=== PATIENT | female | born 1965 | race Caucasian/White ===

== ENCOUNTER 2019-09-22 09:52 | Outpatient (CLI) | payer OTHER, SELFPAY | END 2019-09-22 09:53 | disposition home or self-care (01) | PROVIDERS: PCP Family Medicine; Visit Provider Family Medicine | DX: J44.9 Chronic obstructive pulmonary disease, unspecified (principal) | CPT/HCPCS: 94060; 94726; 94729 ==

== ENCOUNTER 2019-09-26 12:04 | Outpatient (CLI) | payer OTHER, SELFPAY ==
--- NOTE | ~2019-09-26 | CT_ITS ---
EXAMINATION: CT lung screening EXAM DATE: 09/26/2019 12:37 INDICATION: Personal history of nicotine dependence. TECHNIQUE: Spiral low dose CT of the chest without contrast. Axial, coronal and sagittal images were reviewed. The dose-length product (DLP) for this examination was 92.01 mGy-cm. The exposure was ta ilored according to patient size (auto mA exposure control), and iterative reconstruction (ASIR) was used as additional dose reduction technique. Comparison is made to prior examination from 08/11/2018. FINDINGS: Calcified left lower lobe granuloma. Development of several right lower lobe superior segm ental 2 mm opacities likely postinfectious. There is moderate emphysema and mild bronchiectasis. Left basilar linear scarring. Tracheobronchial tree is patent. There is no mediastinal, hilar or axilla ry lymphadenopathy. There are no pleural or pericardial effusions. There is no pneumothorax. He art normal in size. No evidence of coronary arterial calcification. There is no significant interv al change. There are cholecystectomy clips. There is mild thoracic spondylosis without osteoblast ic or osteolytic lesions identified. IMPRESSION: Lung-RADS category 2, benign appearance or behavior (<1% chance of malignancy); recommend continued LDCT screening in 1 year. Reviewed, dictated and finalized at location A.
== END 2019-09-26 12:05 | disposition home or self-care (01) ==
LOC: CHSIMG 12:07
PROVIDERS: PCP Family Medicine; Visit Provider Family Medicine
DX: Z12.2 Encounter for screening for malignant neoplasm of respiratory organs (principal); Z87.891 Personal history of nicotine dependence
CPT/HCPCS: G0297

== ENCOUNTER 2020-08-13 06:22 | Emergency (ER) | payer OTHER, SELFPAY ==
--- NOTE | ~2020-08-13 | XR_ITS ---
EXAMINATION: XR chest 2V DATE: 08/13/2020 10:04 INDICATION: Cough and shortness of breath. TECHNIQUE: Frontal and lateral views of the chest were obtained. COMPARISON: Chest 2 views 11/14/2015, chest CT 09/26/2019 FINDINGS: There is a diffuse interstitial pattern in the lungs. No pleural effusion or pneumothorax. The heart size is normal. There are surgical clips in the abdomen. There is a small hiatal hernia. IMPRESSION: 1. Diffuse interstitial pattern in the lungs, consistent with mild pulmonary edema versus atypical pn eumonia. 2. Small hiatal hernia. Reviewed, dictated and finalized at location B. IMPRESSION: 1. Diffuse interstitial pattern in the lungs, consistent with mild pulmonary ed luana versus atypical pneumonia. 2. Small hiatal hernia.
[2020-08-13 06:30] VITALS: BP 141/87; PULSE 62; RESP 20; TEMP 36.6; O2SAT 93
--- NOTE | 2020-08-13 07:05 | PC.NURSE ---
report to john durham
--- NOTE | 2020-08-13 07:27 | ED.BACK ---
HPI - Back Pain/Injury General Chief Complaint: Nausea/Vomiting/Diarrhea Stated Complaint: severe back pain nausea vomiting Time Seen by Provider: 08/13/20 07:17 Source: patient Mode of arrival: ambulatory Limitations: no limitations History of Present Illness HPI Narrative: Patient comes in having low back pain for the past few days. Pain has been moderately severe to severe. This is a sharp stabbing pain, made worse with movement, and associated with spasms in her back she says. She cannot recall anything that has precipitated this ack pain. She has had back pain in the past, but not this severe or prolonged. After questioning her, it appears she comes in for abdominal pain now, because ongoing pain has not let up over the past few days. There is no radation of the pain to either leg. She also complains of mild ongoing cough, with no sputum production, no fever and no chills. Related Data Home Medications Medication Instructions Recorded Confirmed atenolol 50 mg PO DAILY 08/13/20 08/13/20 atorvastatin 10 mg PO DAILY 08/13/20 08/13/20 beclomethasone dipropionate [Qvar 1 inh INHALATION BID 08/13/20 08/13/20 RediHaler] dicyclomine 20 mg PO PRN PRN 08/13/20 08/13/20 ipratropium bromide [Atrovent HFA] 2 puff INHALATION QID PRN 08/13/20 08/13/20 latanoprost 1 drp EACH EYE HS 08/13/20 08/13/20 umeclidinium [Incruse Ellipta] 1 inh INHALATION DAILY 08/13/20 08/13/20 Allergies Allergy/AdvReac Type Severity Reaction Status Date / Time No Known Allergies Allergy Unverified 08/28/16 11:02 Review of Systems Constitutional: Constitutional: Reports no additional constitutional complaints Eyes: Eyes: Reports no additional eye complaints ENT: Reports system reviewed and no additional complaints, except as documented Cardiovascular: Cardiovascular: Reports no additional cardiovascular complaints Respiratory: Respiratory: Reports no additional respiratory complaints Gastrointestinal: Gastrointestinal: Reports no additional gastrointestinal complaints Genitourinary: Genitourinary: Reports no additional female genitourinary complaints Musculoskeletal: Musculoskeletal: Reports no additional musculoskeletal complaints Integumentary/Breasts: Skin/Breast: Reports system reviewed and no additional complaints, except as docu Neurologic: Reports system reviewed and no additional complaints, except as documented Psychiatric: Psychiatric: Reports no additional psychiatric complaints Endocrine: Endocrine: Reports no additional endocrine complaints Hematologic/Lymphatic: Hematologic/Lymphatic: Reports no additional hematologic/lymphatic complaints Allergic/Immunologic: Allergic/Immunologic: Reports no additional allergic/immunologic complaints [facility] Past Medical History Medical History Back pain COPD (chronic obstructive pulmonary disease) HTN (hypertension) Hyperlipidemia Impaired fasting glucose Surgical History Surgical History (Updated 08/13/20 @ 07:34 by Chang Clinton MD) H/O hernia repair History of cholecystectomy Family History Family History (Updated 08/13/20 @ 07:38 by Chang Clinton MD) Father No problems noted. Father Cerebrovascular accident Mother Obesity CHF (congestive heart failure) Other Diabetes mellitus Social History Social History (Updated 08/13/20 @ 07:37 by Chang Clniton MD) Smoking status: Never smoker Alcohol use details: minimal rare alcohol use Exam Const: General: healthy appearing, no acute distress and alert Orientation/consciousness: patient oriented x3 HENMT: Head: normal to inspection Ears: external ears normal and TM's normal bilaterally General nose exam: Normal external nose present Face and sinus: normal facial exam Mouth: Yes Normal oral and palatal mucosa present Throat: posterior oropharynx normal Eyes: Conjunctivae: conjunctivae normal Neck: Neck: normal visual inspection Chest
[2020-08-13] MEDS: DEXAMETHASONE 4 MG TABLET 12 MG PO (07:39)
[2020-08-13] MEDS: BACLOFEN 10 MG TABLET 20 MG PO (07:40)
[2020-08-13] MEDS: traMADol HCL (*CRX) 50 MG TABLET PO (07:40)
[2020-08-13] MEDS: KETOROLAC (*BKC) 60 MG/2 ML VIAL IM (07:41)
[2020-08-13 08:20] LABS: Hemoglobin 13.8 g/dL (12.0-15.0); Mean Corpuscular HGB Conc 32.9 g/dL (32.0-36.0); Mean Corpuscular Hemoglobin 31.7 pg (27.0-31.0); Mean Corpuscular Volume 96.6 fL (78.0-102.0); Mean Platelet Volume 10.8 fl (9.2-11.8); Platelet Count Result 367 K/mm3 (150-420); Red Blood Count 4.35 M/mm3 (4.20-5.40); Red Cell Distribution Width 12.8 % (11.6-14.4); White Blood Count 10.3 K/mm3 (4.8-10.8)
[2020-08-13 08:30] VITALS: BP 146/91; PULSE 54; RESP 16; O2SAT 96
[2020-08-13 08:32] LABS: Alanine Aminotransferase 43 U/L (14-59); Albumin Level 2.4 g/dL (3.4-5.0); Alkaline Phosphatase 93 U/L (46-116); Anion Gap 6 mmol/L (8-16); Aspartate Amino Transferase 34 U/L (15-37); Bilirubin,Total 0.6 mg/dL (0.00-1.00); Blood Urea Nitrogen 8 mg/dL (7-18); Carbon Dioxide 29 mmol/L (21-32); Chloride 105 mmol/L (98-108); Estimated CRCL calculation 78 ml/min; Estimated Glomerular Filt Rate > 60; Glucose 111 mg/dL (70-99); Osmolality Calculated 289 mOsm/kg (285-295); Potassium 3.7 mmol/L (3.5-5.1); Sodium 140 mmol/L (136-145); Total Protein 6.2 g/dL (6.4-8.2)
[2020-08-13 08:47] LABS: Band Neutrophils Percent 0 % (0-6); Lymphocytes Absolute Manual 1.75 K/mm3 (1.1-4.5); Lymphocytes Percent Manual 17 % (18-44); Monocytes Absolute Manual 0.82 K/mm3 (0.1-0.90); Monocytes Percent Manual 8 % (3-9); Neutrophils Absolute Manual 7.72 K/mm3 (1.7-7.2); Neutrophils Percent Manual 75 % (46-73); Platelet Estimate Adequate (Adequate); Total Cells Counted 100
--- NOTE | 2020-08-13 08:47 | PC.NURSE ---
Pt ambulatory to bathroom with 1 standby assist. pt states that she is feeling better and spasm are gone.
[2020-08-13 08:49] LABS: Add Urine Microscopic? YES; Appearance Urine Sl Cloudy (Clear); Bilirubin Urine Negative (Negative); Blood Urine Negative (Negative); Color Urine Yellow (Yellow); Glucose Urine UA Negative (Negative); Ketones Urine Negative (Negative); Leukocyte Esterase Ur Negative (Negative); Nitrate Urine Negative (Negative); Protein Urine Negative (Negative); Urobilinogen Urine 0.2 mg/dL (0.2-1.0)
[2020-08-13 08:52] LABS: Bacteria Urine Trace /hpf; RBC Urine None seen /hpf (0-2); Squamous Epithelial Cell Urine Many /hpf (Few); WBC Urine None seen /hpf (0-3)
[2020-08-13 08:53] LABS: Mucus Urine Few /lpf
--- NOTE | 2020-08-13 09:25 | ECG_ITS ---
SINUS BRADYCARDIA EARLY PRECORDIAL R/S TRANSITION BORDERLINE ST-T WAVE ABNORMALITY- INFERIOR LEADS BASELINE WANDER- V4 BORDERLINE ECG Electronically Signed On 08-13-2020 15:13:28 CDT by Lon KIRBY
--- NOTE | 2020-08-13 09:25 | PC.NURSE ---
Pt c/o epigastric and chest pain. 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
[2020-08-13] MEDS: MAG HYDROX/ALUMINUM HYD/SIMETH 30 ML, PHENobarb/HYOSCY/ATROPINE/SCOP 32.4 MG, LIDOCAINE... PO (09:34)
[2020-08-13 09:36] VITALS: BP 153/103; PULSE 56; RESP 18; O2SAT 94
[2020-08-13 09:58] VITALS: BP 144/95
[2020-08-13 11:09] LABS: BNP 316 pg/mL (0-100)
[2020-08-13 11:17] VITALS: BP 146/92; PULSE 73; RESP 18; O2SAT 94
[2020-08-13 11:47] LABS: Troponin I 5.5 ng/L (0.00-60.4)
== END 2020-08-13 12:30 | disposition home or self-care (01) ==
PROVIDERS: Emergency Provider Emergency Medicine; PCP Family Medicine
DX: J18.9 Pneumonia, unspecified organism (principal); M54.5 Low back pain
CPT/HCPCS: 36415; 71046; 80053; 81001; 83880; 84484; 85025; 93005; 96372; 99283; 99284; A9270; J1885; J8540

== ENCOUNTER 2020-08-14 22:58 | Inpatient (IN) | payer OTHER, SELFPAY ==
--- NOTE | ~2020-08-14 | CT_ITS ---
EXAMINATION: CT abdomen pelvis w con DATE: 08/15/2020 02:07 INDICATION: Abdominal pain radiating to back TECHNIQUE: Computed tomography (CT) of the abdomen and pelvis was performed with 100 cc Omnipaque 350 intravenous contrast. Automated exposure control and iterative reconstruction technique were employe d. Exam dose: 601.12 mGy-cm total exam DLP. COMPARISON: None. FINDINGS: There is mild atelectasis and/or scarring at the lung bases. There is hepatomegaly. No pericardial or pleural effusion. Small to moderate-sized Hiatal hernia. Status post cholecystectomy. There is mild intrahepatic bile duct dilatation and the common bile duct measures up to 9 mm, which may be secondary to cholecystectomy. No pancreatic duct dilatation. There is peripancreatic fluid, consistent with pancreatitis. Approximately 11 x 18 mm hypoenhancing right hepatic lesion; differential diagnosis includes cyst, he mangioma, primary or metastatic hepatic neoplasm. Otherwise no hepatic, splenic, pancreatic space-occ upying mass lesion Approximately 9.5 x 14.5 mm right adrenal mass, most likely an adenoma in the absence of any known ma lignancy. Normal left adrenal gland. There is prominent right renal scarring. No suspicious renal space-occupying mass lesion is evident. No urinary tract calculus or hydroureteronephrosis. Urinary bladder is relatively evacuated. Retroverted uterus. No adnexal mass lesion. Normal caliber of the abdominal aorta. No intraperitoneal or retroperitoneal or pelvic mass lesion or adenopathy or ascites. Partial right colectomy. There is a prominent of fecal material in the colon and distal small bowel. Multiple diverticula of the sigmoid colon; no CT evidence of diverticulitis. Burst fracture deformity of L1. IMPRESSION: Pancreatitis Bibasilar atelectasis and/or scarring Small to moderate hiatal hernia Colon by 18 mm nonspecific hypodense lesion of the right hepatic lobe Prominent right renal scarring Colonic diverticulosis Partial right colectomy Burst fracture deformity of L1 Reviewed, dictated and finalized at Location A. Reviewed, dictated and finalized at location A.
--- NOTE | ~2020-08-14 | XR_ITS ---
XR chest 1V portable DATE: 08/15/2020 00:46 INDICATION: Chest pain TECHNIQUE: Portable AP chest on 08/15/2020 at 0049 hours COMPARISON: 08/13/2020 2 view chest FINDINGS: There is mild bibasilar infiltrate and atelectasis. Heart size is likely within normal range considering magnification associated with AP projection. No pulmonary vascular congestion or pleural effusion or pneumothorax. Diffuse osteopenia. Dextroscoliosis of the thoracic spine. IMPRESSION: Mild bibasilar infiltrate or atelectasis Reviewed, dictated and finalized at location A.
--- NOTE | ~2020-08-14 | CT_ITS ---
EXAMINATION: CT abdomen pelvis wo/w con DATE: 08/17/2020 10:37 INDICATION: Right hepatic lobe lesion. Fever and elevated white blood cell count. TECHNIQUE: Computed tomography (CT) of the abdomen and pelvis was performed without and with 100 mL O mnipaque-350 intravenous contrast. Automated exposure control and iterative reconstruction technique were employed. The dose-length product was 1603.82 mGy-cm. COMPARISON: CT dated 08/15/2020 FINDINGS: Small bilateral posteriorly layering pleural effusions. Consolidation with volume loss likely represe nting secondary passive atelectasis in the dependent aspect of the bilateral lower lobes and lingula. Heart size is normal. No pericardial effusion. Cholecystectomy clips in the gallbladder fossa. Appro ximately 1.5 cm lesion in the right hepatic lobe which is isodense and indiscernible on the precontra st images with no evident enhancement on the early and delayed phase postcontrast images. No other he patic lesions identified. Again seen is peripancreatic stranding without discrete acute peripancreati c fluid collections extending from the head to the tail of the pancreas consistent with acute interst itial pancreatitis. Homogeneous pancreatic parenchymal enhancement with no evident necrosis. Spleen, left kidney and left adrenal glands are normal. Regions of cortical atrophy and scarring at the upper and lower poles of the right kidney. 1.3 cm right adrenal nodule without change since 08/11/2018 whic h could be most consistent with an adenoma. Postoperative change of prior right hemicolectomy with il eocolic anastomosis in the right lower quadrant. No bowel obstruction. Mild sigmoid predominant diver ticulosis without adjacent inflammatory change to suggest diverticulitis. Small amount of ascites in the cul-de-sac. No abscess or free intraperineal gas. Age-indeterminate but relatively recent-appeari ng L1 burst fracture with 20% central vertebral body height loss and 3 mm retropulsion. A few additio nal more chronic appearing mild compression fractures in the mid to lower thoracic spine. Bladder, ut erus and bilateral adnexa are unremarkable. IMPRESSION: 1. Radiographically uncomplicated acute interstitial pancreatitis. 2. Nonspecific 1.5 cm lesion in the right hepatic lobe isodense to the surrounding hepatic parenchyma with no discernible enhancement on postcontrast imaging. Although statistically most likely to repre sent a slowly filling hemangioma would recommend one-year follow-up pre and postcontrast MRI. 3. Small bilateral pleural effusions and small amount of ascites in the pelvis. 4. Relatively recent-appearing L1 burst fracture with mild loss of vertebral body height and mild ret ropulsion, new since 09/26/2019 Reviewed, dictated and finalized at location A. IMPRESSION: 1. Radiographically uncomplicated acute interstitial pancreatitis. 2. Nonspecific 1.5 cm lesion in the right hepatic lobe isodense to the surround ing hepatic parenchyma with no discernible enhancement on postcontrast imaging. Although statistically most likely to represent a slowly filling hemangioma wo uld recommend one-year follow-up pre and postcontrast MRI. 3. Small bilateral pleural effusions and small amount of ascites in the pelvis. 4. Relatively recent-appearing L1 burst fracture with mild loss of vertebral nieves dy height and mild retropulsion, new since 09/26/2019
--- NOTE | ~2020-08-14 | CT_ITS ---
EXAMINATION: CTA chest PE protocol DATE: 08/18/2020 07:40 INDICATION: Shortness of breath. COVID-19 positive. TECHNIQUE: Computed tomography angiography (CTA) of the chest was performed with 100 mL Omnipaque-350 intravenous contrast timed to evaluate the pulmonary arteries. Coronal maximum intensity projection 3D-reconstructions were created by the technologist. Automated exposure control and iterative reconst ruction technique were employed. The dose-length product was 335.84 mGy-cm. COMPARISON: Chest CT 09/26/2019, CT abdomen and pelvis 08/17/2020 FINDINGS: There is moderate emphysema. There are small pleural effusions. There is mild atelectasis i n the inferior lungs. A calcified right lung nodule and calcified right hilar lymph nodes are consist ent with old adenomatous disease. There is peripheral septal thickening in the lungs bilaterally, con sistent with mild pulmonary edema. The heart size is normal. No pericardial effusion. There is no pul monary embolus. There is a small sliding hiatal hernia. There is fat stranding around the pancreas, c onsistent with acute interstitial pancreatitis. There is thoracic kyphosis and mild spondylosis. Ther e is mild chronic anterior wedging of multiple vertebral bodies. There is a burst fracture of L1 supe rior endplate. IMPRESSION: 1. No pulmonary embolus. 2. Mild pulmonary edema with small pleural effusions. 3. Moderate emphysema. 4. Acute interstitial pancreatitis. 5. Burst fracture of L1 superior endplate, likely acute or subacute. Reviewed, dictated and finalized at location A.
[2020-08-14 23:09] VITALS: BP 174/88; PULSE 53; RESP 22; TEMP 36.9; O2SAT 94
--- NOTE | 2020-08-14 23:09 | ECG_ITS ---
Measurements Intervals [place] Rate: 49 P: 11 W[place]: 134 QRS: 4 QRSD: 90 T: -11 QT: 452 QTc: 411 Interpretive Statements SINUS BRADYCARDIA VOLTAGE CRITERIA FOR LVH MINIMAL Q WAVES- HIGH LATERAL LEADS BORDERLINE T WAVE ABNORMALITY- ANT/INF LEADS BASELINE ARTIFACT- I, II, III, AVR, AVL, AVF, V4-V5 ABNORMAL ECG Electronically Signed On 08-15-2020 7:20:36 CDT by Lon Kim D.O.
[2020-08-14 23:16] VITALS: PULSE 53
--- NOTE | 2020-08-14 23:34 | ED.NAVMDI ---
HPI - Nausea/Vomiting/Diarrhea General Chief complaint: Weakness Stated complaint: Amb Time Seen by Provider: 08/14/20 23:34 Source: patient Mode of arrival: EMS Limitations: no limitations History of Present Illness HPI Narrative: 55-year-old woman with a history of COPD, abdominal pain, and hypertension comes in today complaining of vomiting that will quit, abdominal pain and back pain. She states that she was seen here yesterday and given prescriptions for presumed pneumonia. She has been unable to keep down any of her medications. She denies fever, shortness of breath, diarrhea, melena, bloody stools, dysuria, hematuria, abdominal injury or sick exposures. She states she has not had any diarrhea for 3 days. She states she has been having vomiting for a week. MD elicited complaint: nausea, vomiting and abdominal pain Pertinent past history: bowel obstruction and abdominal surgery Onset (ago): day(s) Description of vomiting: food contents and watery Associated nausea: Yes Associated abdominal pain: Yes Location of pain: epigastric Radiation: other ( Back) Pain consistency: constant Severity: severe Quality: dull Exacerbating factors: eating and vomiting Relieving factors: none Associated symptoms: cough, loss of appetite and nausea/vomiting Related Data Home Medications Medication Instructions Recorded Confirmed atenolol 50 mg PO DAILY 08/13/20 08/14/20 atorvastatin 10 mg PO DAILY 08/13/20 08/14/20 beclomethasone dipropionate [Qvar 1 inh INHALATION BID 08/13/20 08/14/20 RediHaler] dicyclomine 20 mg PO PRN PRN 08/13/20 08/14/20 ipratropium bromide [Atrovent HFA] 2 puff INHALATION QID PRN 08/13/20 08/14/20 latanoprost 1 drp EACH EYE HS 08/13/20 08/14/20 umeclidinium [Incruse Ellipta] 1 inh INHALATION DAILY 08/13/20 08/14/20 Allergies Allergy/AdvReac Type Severity Reaction Status Date / Time No Known Allergies Allergy Unverified 08/14/20 23:19 Review of Systems Review of Systems: All systems reviewed & are unremarkable except as noted in HPI and below Constitutional: Constitutional: Denies anorexia, Denies chills, Denies fatigue and Denies fever(s) Eyes: Eyes: Denies blurry vision, Denies change in vision and Denies photophobia ENT: Denies otalgia, Denies facial pain, Denies mouth lesions, Denies nasal congestion, Denies nasal discharge and Denies sore throat Cardiovascular: Cardiovascular: Denies chest pain, Denies edema and Denies dyspnea Respiratory: Respiratory: Reports cough, Denies hemoptysis, Denies excessive phlegm production, Denies pain with cough, Reports dyspnea and Denies wheezing Gastrointestinal: Gastrointestinal: Reports abdominal pain, Denies melena, Denies hematochezia, Denies coffee ground emesis, Denies diarrhea, Reports nausea, Reports vomiting and Denies hematemesis Musculoskeletal: Musculoskeletal: Reports back pain, Denies arthralgias and Denies joint swelling Neurologic: Denies Neuro-related abnormal movements, Denies Abnormal speech present, Denies vertigo, Denies dizziness, Denies syncope, Denies focal weakness and Denies numbness Hematologic/Lymphatic: Hematologic/Lymphatic: Denies easy bleeding and Denies easy bruising Allergic/Immunologic: Allergic/Immunologic: Denies urticaria, Denies throat swelling and Denies tongue swelling PMFSH Past Medical History Medical History (Updated 08/15/20 @ 03:44 by Gelacio Sibley MD) Back pain COPD (chronic obstructive pulmonary disease) Fibromyalgia HTN (hypertension) Hyperlipidemia Impaired fasting glucose Surgical History Surgical History (Updated 08/15/20 @ 03:31 by Gelacio Sibley MD) H/O colectomy H/O hernia repair History of cholecystectomy Family History Family History (Updated 08/13/20 @ 07:38 by Chang Clinton MD) Father No problems noted. Father Cerebrovascular accident Mother Obesity CHF (congestive heart failure) Other Diabetes mellitus Social History Social History (Updated 08/15/20 @ 03
[2020-08-14] MEDS: HYDROmorphone HCL INJ (*CRX) 2 MG/ML VIAL 0.5 MG IV PUSH (23:42)
[2020-08-14] MEDS: ONDANSETRON INJ 4 MG/2 ML VIAL IV PUSH (23:42)
[2020-08-14] MEDS: SODIUM CHLORIDE 0.9% IV 1,000 ML 999 ML IV CONT (23:42)
[2020-08-15] VITALS (7 sets, daily range): BP systolic 124–161; BP diastolic 70–87; PULSE 55–70; RESP 18–20; TEMP 36.6–37.4; O2SAT 93–99; BMI 31.7
[2020-08-15 00:47] LABS: Hematocrit 46.1 % (35.0-49.0); Immature Platelet Fraction Pct 5.1 % (1.0-7.0); Mean Corpuscular HGB Conc 32.5 g/dL (32.0-36.0); Mean Corpuscular Hemoglobin 31.8 pg (27.0-31.0); Mean Corpuscular Volume 97.7 fL (78.0-102.0); Mean Platelet Volume 11.1 fl (9.2-11.8); Platelet Count Result 544 K/mm3 (150-420); Red Blood Count 4.72 M/mm3 (4.20-5.40); Red Cell Distribution Width 13.2 % (11.6-14.4)
[2020-08-15 01:02] LABS: Partial Thromboplastin Time 23.2 SEC (23.90-30.70); Prothrombin Time 10.9 Seconds (9.50-12.10)
[2020-08-15 01:11] LABS: White Blood Count 32.1 K/mm3 (4.8-10.8)
[2020-08-15 01:12] LABS: Lactic Acid Reflex 1.2 mmol/L (0.4-2.0)
[2020-08-15 01:17] LABS: Alanine Aminotransferase 47 U/L (14-59); Albumin Level 3.1 g/dL (3.4-5.0); Alkaline Phosphatase 113 U/L (46-116); Anion Gap 10 mmol/L (8-16); Aspartate Amino Transferase 25 U/L (15-37); Bilirubin,Total 0.5 mg/dL (0.00-1.00); Blood Urea Nitrogen 18 mg/dL (7-18); CRP 0.5 mg/dL (0.0-0.9); Calcium 9.6 mg/dL (8.5-10.1); Carbon Dioxide 27 mmol/L (21-32); Chloride 104 mmol/L (98-108); Estimated CRCL calculation 67 ml/min; Estimated Glomerular Filt Rate > 60; Glucose 139 mg/dL (70-99); Osmolality Calculated 295 mOsm/kg (285-295); Potassium 3.6 mmol/L (3.5-5.1); Total Protein 7.1 g/dL (6.4-8.2); Troponin I 7.4 ng/L (0.00-60.4)
[2020-08-15] MEDS: SODIUM CHLORIDE 0.9% IV 1,000 ML 999 ML IV CONT (01:30)
[2020-08-15 01:31] LABS: Lipase > 1500 U/L (73-393); Sodium 141 mmol/L (136-145)
[2020-08-15 01:48] LABS: Band Neutrophils Percent 2 % (0-6); Large Platelets Present; Lymphocytes Percent Manual 5 % (18-44); Monocytes Absolute Manual 0.96 K/mm3 (0.1-0.90); Monocytes Percent Manual 3 % (3-9); Neutrophils Absolute Manual 29.53 K/mm3 (1.7-7.2); Neutrophils Percent Manual 90 % (46-73); Platelet Estimate Increased (Adequate); Total Cells Counted 100
[2020-08-15 02:04] LABS: Add Urine Microscopic? YES; Appearance Urine Clear (Clear); Bilirubin Urine Negative (Negative); Blood Urine Negative (Negative); Glucose Urine UA Negative (Negative); Ketones Urine Negative (Negative); Leukocyte Esterase Ur Negative LEU/UL (Negative); Nitrate Urine Negative (Negative); Protein Urine Trace (Negative); Specific Grav Ur >= 1.030 (1.010-1.020); Urobilinogen Urine 0.2 mg/dL (0.2-1.0)
[2020-08-15] MEDS: HYDROmorphone HCL INJ (*CRX) 2 MG/ML VIAL 0.5 MG IV PUSH ×6 (02:12→21:43)
[2020-08-15 02:17] LABS: Color Urine Dark Yellow (Yellow)
[2020-08-15 02:18] LABS: Bacteria Urine 2+ /hpf; Calcium Oxalate Crystals Urine Present /hpf; Mucus Urine Moderate /lpf; Squamous Epithelial Cell Urine Many /hpf (Few)
--- NOTE | 2020-08-15 03:00 | PC.NURSE ---
ERP discussed POC for admission c pt. Call placed for bed assignment.
[2020-08-15 03:19] LABS: Salicylate 1.2 mg/dL (2.8-20.0)
[2020-08-15 03:22] LABS: Ethanol < 3 mg/dL (0-6)
[2020-08-15 03:24] LABS: Amphetamine Screen Urine Negative (Negative); Barbiturate Screen Urine Positive (Negative); Benzodiazepines Screen Urine Negative (Negative); Cannabinoid Screen Urine Positive (Negative); Cocaine Screen Urine Negative (Negative); Methadone Screen Urine Negative (Negative); Opiate Screen Urine Positive (Negative); Phencyclidine Screen Urine Negative (Negative)
[2020-08-15] MEDS: ONDANSETRON INJ 4 MG/2 ML VIAL IV PUSH ×3 (03:32→13:17)
[2020-08-15 03:54] LABS: Amylase > 650 U/L (25-115); Lipase > 1500 U/L (73-393)
--- NOTE | 2020-08-15 04:00 | ADMGEN ---
This patient, Judit Michel, was admitted to 2nd Floor Room 204-2. Patient oriented to hospital policies and general routines including ID bracelet, bed and alarms, visiting hours, pain management, procedures, bathroom and other care routines, personal items, smoking policy, room service/diet, and visiting hours. Patient encouraged to report perceived risks to care and to ask questions if they do not understand what they are told or what they should do.
[2020-08-15] MEDS: DEXTROSE 5%/LACTATED RINGERS 1,000 ML 200 ML IV CONT ×4 (04:28→21:44)
[2020-08-15] MEDS: DICYCLOMINE HCL 10 MG CAPSULE 20 MG PO ×2 (04:39→13:13)
[2020-08-15] MEDS: ENOXAPARIN 40 MG/0.4 ML SYRINGE SUB-Q (09:05)
[2020-08-15] MEDS: UMECLIDINIUM BROMIDE 62.5 MCG ELLIPTA 1 PUFF INHALATION (09:05)
[2020-08-15] MEDS: atenoloL 50 MG TABLET PO (09:06)
[2020-08-15] MEDS: PANTOPRAZOLE SODIUM IV 40 MG VIAL IV PUSH ×2 (09:06→20:52)
[2020-08-15] MEDS: ATORVASTATIN 10 MG TABLET PO (09:06)
--- NOTE | 2020-08-15 09:06 | PC.NURSE ---
Morning dose IV push Pantoprazole 40mg, PRN dose IV push Ondansetron 4mg & Hydromorphone 0.5mg administered by Enedina Duncan RN at bedside.
[2020-08-15 09:44] LABS: Hematocrit 41.2 % (35.0-49.0); Hemoglobin 13.2 g/dL (12.0-15.0); Mean Corpuscular Hemoglobin 31.6 pg (27.0-31.0); Mean Corpuscular Volume 98.6 fL (78.0-102.0); Mean Platelet Volume 11.3 fl (9.2-11.8); Platelet Count Result 469 K/mm3 (150-420); Red Blood Count 4.18 M/mm3 (4.20-5.40); Red Cell Distribution Width 13.6 % (11.6-14.4)
[2020-08-15 09:47] LABS: White Blood Count 31.2 K/mm3 (4.8-10.8)
[2020-08-15 09:58] LABS: Alanine Aminotransferase 38 U/L (14-59); Albumin Level 2.5 g/dL (3.4-5.0); Alkaline Phosphatase 90 U/L (46-116); Anion Gap 7 mmol/L (8-16); Aspartate Amino Transferase 15 U/L (15-37); Bilirubin,Total 0.4 mg/dL (0.00-1.00); Blood Urea Nitrogen 15 mg/dL (7-18); Calcium 8.9 mg/dL (8.5-10.1); Carbon Dioxide 26 mmol/L (21-32); Chloride 109 mmol/L (98-108); Estimated CRCL calculation 73 ml/min; Estimated Glomerular Filt Rate > 60; Glucose 125 mg/dL (70-99); Osmolality Calculated 295 mOsm/kg (285-295); Potassium 3.6 mmol/L (3.5-5.1); Sodium 142 mmol/L (136-145); Total Protein 5.9 g/dL (6.4-8.2)
[2020-08-15 09:59] LABS: Amylase 1289 U/L (25-115); Troponin I 7.4 ng/L (0.00-60.4)
[2020-08-15 10:17] LABS: Band Neutrophils Percent 1 % (0-6); Lymphocytes Absolute Manual 1.87 K/mm3 (1.1-4.5); Lymphocytes Percent Manual 6 % (18-44); Monocytes Absolute Manual 1.87 K/mm3 (0.1-0.90); Monocytes Percent Manual 6 % (3-9); Neutrophils Absolute Manual 27.45 K/mm3 (1.7-7.2); Neutrophils Percent Manual 87 % (46-73); Total Cells Counted 100
[2020-08-15 10:18] LABS: Platelet Estimate Adequate (Adequate)
[2020-08-15] MEDS: FLUTICASONE PROP 220 MCG (*SP) 12 GM INHALER 1 PUFF INHALATION ×2 (10:23→20:52)
[2020-08-15 10:37] LABS: Lipase 5140 U/L (73-393)
[2020-08-15 10:59] LABS: Cholesterol 110 mg/dL (0-200); HDL Direct 31 mg/dL (40-60); LDL Cholesterol Calculated 55 mg/dL (<130); Triglycerides 120 mg/dL (0-150)
--- NOTE | 2020-08-15 12:09 | PM.IMHP ---
H&P: HPI History of Present Illness Date/Time: 08/15/20 12:09 this is a 55-year-old female nausea vomiting diarrhea and weakness. Patient has a past medical history of chronic back pain, COPD, fibromyalgia, hypertension, hyper lipid. Impaired fasting glucose according to patient she has been with nausea vomiting diarrhea for a few weeks now. Patient noted that she assumed that her condition with improved she did not proceed to her primary care physician office or ED. Patient did come to our ED on 08/13/2020 and was diagnosed with pneumonia at that time she was discharged with Bactrim. Due to patient's nausea and vomiting she was unable to keep medication down on admission her vital signs 65, 18, 94% on 2 L nasal cannula blood pressure 161/87, WBCs on admission 10.3 currently 32.1, hemoglobin 13.8, hematocrit 42, platelets 367, sodium 141, potassium 3.6, BUN 18, creatinine 0.92, glucose 139, lactic acid 1.2, AST 25, ALT 47, troponin 7.4, CRP 0.5, BUN 16, lipase 1500, opiates positive ,barbiturates positive, cannabis positive, chest x-ray infiltrate or atelectasis EKG sinus bradycardia heart rate of 49. CT of the abdomen indicates pancreatitis. Patient does continue to complain of abdominal pain. He notes that the pain starts in her mid abdominal area and migrates to the left side of her back, she notes that the pain medication is not controlling her pain. She did attempt to eat today which increased her nausea and vomiting. She will remain n.p.o. today and attempt to feed her tomorrow. The patient denies SOB, CP, palpitation, extremity numbness, lightheadedness, dizziness, constipation, diarrhea, chills, or fever. Disposition: Patient plan to discharge home with self-care Family hx:reviewed and noncontributory 60 minutes spent with the patient <MIKAELA Barone - Last Filed: 08/16/20 07:10> Chief Complaint: abd pain <MIKAELA Barone - Last Filed: 08/16/20 07:10> Review of Systems Review of Systems: Narrative: A 14 organ system Review of Systems was performed and pertinent positives included in the HPI, otherwise remaining ROS is negative. <MIKAELA Barone - Last Filed: 08/16/20 07:10> [facility] Past Medical History Medical History: Medical History (Updated 08/18/20 @ 10:36 by MIKAELA Barone) Back pain COPD (chronic obstructive pulmonary disease) HTN (hypertension) Hyperlipidemia Impaired fasting glucose <MIKAELA Barone - Last Filed: 08/16/20 07:10> Surgical History Surgical History: Surgical History (Updated 08/15/20 @ 03:31 by Gelacio Sibley MD) H/O colectomy H/O hernia repair History of cholecystectomy <MIKAELA Barone - Last Filed: 08/16/20 07:10> Family History Family History: Family History (Updated 08/13/20 @ 07:38 by Chang Clinton MD) Father No problems noted. Father Cerebrovascular accident Mother Obesity CHF (congestive heart failure) Other Diabetes mellitus <MIKAELA Barone - Last Filed: 08/16/20 07:10> Social History Social History: Social History (Updated 08/15/20 @ 03:32 by Gelacio Sibley MD) Smoking status: Former smoker Smoking end date: 08/01/20 Alcohol intake: former Alcohol use details: rarely Substance use: current Substance use type: marijuana Other substance usage details: 2 weeks Living arrangements: with family Gender identity (if verbalized by the patient): Female Spiritual care concerns: No <MIKAELA Barone - Last Filed: 08/16/20 07:10> Meds Home Medications and Allergies Home medications: Home Medications Medication Instructions Recorded Confirmed Type atenolol 50 mg PO DAILY 08/13/20 08/14/20 History atorvastatin 10 mg PO DAILY 08/13/20 08/14/20 History baclofen 20 mg PO Q4H PRN #30 tablet 08/13/20 08/14/20 Rx beclomethasone dipropionate [Qvar 1 inh INHALATION BID 08/13/20 08/14/20 History RediHaler] dexamethasone 12 mg
--- NOTE | 2020-08-15 13:17 | PC.NURSE ---
IV PUSH PRN dose Ondansetron 4mg & Hydromorphone 0.5mg administered by Naye Mercer RN at bedside.
--- NOTE | 2020-08-15 15:33 | PC.NURSE ---
therapy in to work with pt
[2020-08-15] MEDS: METOCLOPRAMIDE HCL INJ 10 MG/2 ML VIAL 5 MG IV PUSH ×2 (16:25→23:46)
[2020-08-15] MEDS: BENZONATATE 100 MG CAPSULE 200 MG PO (16:25)
[2020-08-15 16:42] LABS: Glucose Point of Care 111 (65-105)
--- NOTE | 2020-08-15 18:14 | PC.NURSE ---
pt up to commode sba, oxygen tubing placement corrected, pt asks for apple juice and white soda, reports nausea is better
--- NOTE | 2020-08-15 18:36 | PC.NURSE ---
pt is having nausea again and agrees to stay with ice chips for now
--- NOTE | 2020-08-15 20:21 | PC.NURSE ---
pt c/o pain, requests more Dilaudid, pt informed she can not have any for another hour, offered norco but pt declines at this time
[2020-08-15] MEDS: LATANOPROST 0.005% OP SOLN 2.5 ML BTL 1 DROP EACH EYE (20:52)
[2020-08-15] MEDS: CYCLOBENZAPRINE HCL 10 MG TABLET PO (20:54)
[2020-08-15] MEDS: guaiFENesin 12 HR 600 MG TABCR 1200 MG PO (22:25)
[2020-08-16] MEDS: DEXTROSE 5%/LACTATED RINGERS 1,000 ML 200 ML IV CONT ×2 (03:24→08:49)
[2020-08-16] MEDS: METOCLOPRAMIDE HCL INJ 10 MG/2 ML VIAL 5 MG IV PUSH ×4 (05:42→23:55)
[2020-08-16] MEDS: HYDROmorphone HCL INJ (*CRX) 2 MG/ML VIAL 0.5 MG IV PUSH ×2 (05:42→13:03)
[2020-08-16 05:58] LABS: Hemoglobin 12.5 g/dL (12.0-15.0); Mean Corpuscular HGB Conc 32.9 g/dL (32.0-36.0); Mean Corpuscular Volume 97.2 fL (78.0-102.0); Mean Platelet Volume 11.1 fl (9.2-11.8); Platelet Count Result 360 K/mm3 (150-420); Red Blood Count 3.91 M/mm3 (4.20-5.40); Red Cell Distribution Width 13.6 % (11.6-14.4)
[2020-08-16 06:04] LABS: White Blood Count 27.2 K/mm3 (4.8-10.8)
[2020-08-16 06:11] LABS: Alanine Aminotransferase 11 U/L (14-59); Albumin Level 2.1 g/dL (3.4-5.0); Alkaline Phosphatase 88 U/L (46-116); Amylase 439 U/L (25-115); Anion Gap 8 mmol/L (8-16); Aspartate Amino Transferase 10 U/L (15-37); Bilirubin,Total 0.8 mg/dL (0.00-1.00); Blood Urea Nitrogen 6 mg/dL (7-18); Calcium 8.8 mg/dL (8.5-10.1); Carbon Dioxide 27 mmol/L (21-32); Chloride 102 mmol/L (98-108); Estimated CRCL calculation 73 ml/min; Estimated Glomerular Filt Rate > 60; Glucose 86 mg/dL (70-99); Lipase 790 U/L (73-393); Magnesium 1.5 mg/dL (1.8-2.4); Osmolality Calculated 280 mOsm/kg (285-295); Potassium 3.5 mmol/L (3.5-5.1); Sodium 137 mmol/L (136-145); Total Protein 5.4 g/dL (6.4-8.2)
[2020-08-16 07:41] LABS: Glucose Point of Care 100 (65-105)
[2020-08-16 07:51] VITALS: BP 145/83; PULSE 81; RESP 20; TEMP 37.8; O2SAT 93
[2020-08-16] MEDS: PANTOPRAZOLE SODIUM IV 40 MG VIAL IV PUSH ×2 (08:14→21:17)
[2020-08-16] MEDS: ONDANSETRON INJ 4 MG/2 ML VIAL IV PUSH (08:14)
[2020-08-16] MEDS: ENOXAPARIN 40 MG/0.4 ML SYRINGE SUB-Q (08:50)
[2020-08-16] MEDS: BENZONATATE 100 MG CAPSULE 200 MG PO ×3 (08:51→16:07)
[2020-08-16] MEDS: guaiFENesin 12 HR 600 MG TABCR 1200 MG PO ×2 (08:51→21:16)
[2020-08-16] MEDS: HYDROcodone/acetaminophen (*CRX) 7.5-325 MG TABLET 1 TAB PO ×3 (08:51→21:35)
[2020-08-16] MEDS: UMECLIDINIUM BROMIDE 62.5 MCG ELLIPTA 1 PUFF INHALATION (08:51)
[2020-08-16] MEDS: FLUTICASONE PROP 220 MCG (*SP) 12 GM INHALER 1 PUFF INHALATION ×2 (08:51→21:17)
[2020-08-16 08:52] VITALS: PULSE 81
[2020-08-16] MEDS: ATORVASTATIN 10 MG TABLET PO (08:52)
[2020-08-16] MEDS: MAGNESIUM OXIDE 400 MG TABLET PO (08:52)
[2020-08-16] MEDS: atenoloL 50 MG TABLET PO (08:52)
[2020-08-16] MEDS: CYCLOBENZAPRINE HCL 10 MG TABLET PO ×2 (08:52→21:24)
--- NOTE | 2020-08-16 10:22 | WPDPN ---
Progress Note: A&P Assessment and Plan (1) Acute pancreatitis: Qualifiers: Acute pancreatitis complication: unspecified Pancreatitis type: unspecified pancreatitis type Qualified Code(s): K85.90 - Acute pancreatitis without necrosis or infection, unspecified Code(s): K85.90 - Acute pancreatitis without necrosis or infection, unspecified Status: Acute Assessment and Plan: CT of the abdomen indicates pancreatitis Continue pain medication remain n.p.o. and advance diet as tolerated Continue pain medication with antiemesis, WBCs-->32.1-->31.2-->27.2 Lactic acid 1.2 CRP 0.5 Lipase >1500-->>1500-->5140-->790 Amylase>650-->1289-->439 (2) Fibromyalgia: Code(s): M79.7 - Fibromyalgia Status: Acute Assessment and Plan: Continue pain medication (3) Hyperlipidemia: Code(s): E78.5 - Hyperlipidemia, unspecified Status: Acute Assessment and Plan: Continue statins (4) HTN (hypertension): Code(s): I10 - Essential (primary) hypertension Status: Acute Assessment and Plan: Blood pressure stable Continue atenolol Vital signs as ordered Adjust medication as needed (5) COPD (chronic obstructive pulmonary disease): Code(s): J44.9 - Chronic obstructive pulmonary disease, unspecified Status: Acute Assessment and Plan: Stable Continue as needed nebulizers (6) Substance use: Code(s): F19.90 - Other psychoactive substance use, unspecified, uncomplicated Status: Acute Assessment and Plan: Patient positive for opiates, barbiturates and cannabis Educated on cessation patient denies Review of Systems Review of Systems: Narrative: A 14 organ system Review of Systems was performed and pertinent positives included in the HPI, otherwise remaining ROS is negative. Exam Narrative: Exam Narrative: GENERAL: This is a well-nourished, well-developed patient, in no apparent distress. HEAD: normocephalic, atraumatic. EYES: PERRL. Sclera clear/white. Vision is grossly intact. EARS: External ears normal, auditory canals clear and without drainage, TMs normal without perforation. Hearing grossly intact. NOSE: External nose normal with no obvious nasal discharge, nares without redness, no rhinorrhea. THROAT: Mucous membranes moist, posterior pharynx clear. NECK: Neck supple, non-tender without lymphadenopathy, masses or thyromegaly. CARDIOVASCULAR: Regular rate and rhythm without murmurs, gallops, or rubs. RESPIRATORY: Clear to auscultation. Breath sounds equal bilaterally. No wheezes, rales, or rhonchi. GASTROINTESTINAL: Abdomen soft and tender, nondistended. Bowel sounds are active. No hepato-splenomegaly, or palpable masses. No guarding. SKIN: warm, intact with no suspicious lesions or rash, good texture and turgor. NEURO: awake, alert, and oriented to person, place and time. There were no obvious focal neurologic abnormalities. Steady gait EXTREMITIES: Normal range of motion. No edema. No calf tenderness. Negative Homans sign bilaterally. BACK: Nontender without deformity or crepitance. No flank tenderness. Objective Data Vital Signs Vital Signs: Vital Signs - 24 hr 08/15/20 10:54 08/15/20 15:27 08/15/20 20:00 Temperature 99.4 F Pulse Rate 65 57 L Respiratory Rate 18 20 Blood Pressure 133/70 Pulse Oximetry 94 99 94 08/15/20 23:55 08/16/20 07:51 08/16/20 08:52 Temperature 98.5 F 100.0 F H Pulse Rate 70 81 81 Respiratory Rate 20 20 Blood Pressure 124/77 145/83 H Pulse Oximetry 93 93 Intake/Output Intake/Output: Intake & Output 08/13/20 08/14/20 08/15/20 08/16/20 23:59 23:59 23:59 23:59 Intake Total 4770 2250 Output Total 950 2350 Balance 3820 -100 Meds/Results Medications: Active Medications Generic Name Dose Route Start Last Admin Trade Name Freq PRN Reason Stop Dose Admin Acetaminophen 1,000 mg 08/15/20 03:12 Acetaminophen 500 Mg Tablet PO Q6H [facility]
[2020-08-16 11:33] LABS: Glucose Point of Care 94 (65-105)
[2020-08-16 16:00] VITALS: BP 130/87; PULSE 85; RESP 20; TEMP 38.3; O2SAT 92
[2020-08-16] MEDS: LATANOPROST 0.005% OP SOLN 2.5 ML BTL 1 DROP EACH EYE (21:17)
[2020-08-16 21:37] VITALS: TEMP 38.1
[2020-08-16 22:09] VITALS: TEMP 36.6
[2020-08-17] VITALS: BP 129/83; PULSE 81; RESP 20; TEMP 37.4; O2SAT 93
--- NOTE | 2020-08-17 00:06 | PC.NURSE ---
Pt. resting in bed, reports feeling better and fever broke . VSS, call carrillo in reach.
--- NOTE | 2020-08-17 03:15 | PC.NURSE ---
Pt. sleeping, call carrillo in reach.
--- NOTE | 2020-08-17 04:08 | PC.NURSE ---
Pt. up ambulatory to BR c walker per self, unassisted. Pt. requesting pain med Gamaliel. Back to bed, pain med given, call carrillo in reach.
[2020-08-17] MEDS: HYDROcodone/acetaminophen (*CRX) 7.5-325 MG TABLET 1 TAB PO ×4 (04:11→23:06)
[2020-08-17 05:20] LABS: Hematocrit 39.3 % (35.0-49.0); Hemoglobin 12.7 g/dL (12.0-15.0); Mean Corpuscular HGB Conc 32.3 g/dL (32.0-36.0); Mean Corpuscular Hemoglobin 31.4 pg (27.0-31.0); Mean Corpuscular Volume 97.3 fL (78.0-102.0); Mean Platelet Volume 11.3 fl (9.2-11.8); Platelet Count Result 338 K/mm3 (150-420); Red Blood Count 4.04 M/mm3 (4.20-5.40); Red Cell Distribution Width 13.5 % (11.6-14.4)
[2020-08-17 05:29] LABS: White Blood Count 25.6 K/mm3 (4.8-10.8)
[2020-08-17 05:34] LABS: Alanine Aminotransferase 23 U/L (14-59); Albumin Level 1.9 g/dL (3.4-5.0); Alkaline Phosphatase 96 U/L (46-116); Anion Gap 9 mmol/L (8-16); Aspartate Amino Transferase 11 U/L (15-37); Blood Urea Nitrogen 7 mg/dL (7-18); Calcium 8.8 mg/dL (8.5-10.1); Carbon Dioxide 26 mmol/L (21-32); Chloride 100 mmol/L (98-108); Estimated CRCL calculation 75 ml/min; Estimated Glomerular Filt Rate > 60; Glucose 100 mg/dL (70-99); Osmolality Calculated 278 mOsm/kg (285-295); Potassium 3.7 mmol/L (3.5-5.1); Sodium 135 mmol/L (136-145); Total Protein 5.6 g/dL (6.4-8.2)
[2020-08-17] MEDS: METOCLOPRAMIDE HCL INJ 10 MG/2 ML VIAL 5 MG IV PUSH ×7 (05:48→23:48)
[2020-08-17 07:32] VITALS: BP 124/85; PULSE 91; RESP 20; TEMP 37.6; O2SAT 91
[2020-08-17 08:03] LABS: Amylase 99 U/L (25-115); Lipase 122 U/L (73-393); Magnesium 1.6 mg/dL (1.8-2.4)
[2020-08-17] MEDS: CYCLOBENZAPRINE HCL 10 MG TABLET PO ×2 (08:41→16:10)
[2020-08-17] MEDS: ONDANSETRON INJ 4 MG/2 ML VIAL IV PUSH (08:41)
[2020-08-17 08:44] VITALS: PULSE 91
[2020-08-17] MEDS: PANTOPRAZOLE SODIUM IV 40 MG VIAL IV PUSH ×2 (08:44→21:35)
[2020-08-17] MEDS: FLUTICASONE PROP 220 MCG (*SP) 12 GM INHALER 1 PUFF INHALATION ×2 (08:44→20:53)
[2020-08-17] MEDS: UMECLIDINIUM BROMIDE 62.5 MCG ELLIPTA 1 PUFF INHALATION (08:44)
[2020-08-17] MEDS: guaiFENesin 12 HR 600 MG TABCR 1200 MG PO ×2 (08:44→20:54)
[2020-08-17] MEDS: atenoloL 50 MG TABLET PO (08:44)
[2020-08-17] MEDS: ATORVASTATIN 10 MG TABLET PO (08:45)
[2020-08-17] MEDS: BENZONATATE 100 MG CAPSULE 200 MG PO ×3 (08:45→16:58)
[2020-08-17] MEDS: MAGNESIUM OXIDE 400 MG TABLET PO ×2 (08:45→10:07)
[2020-08-17] MEDS: ENOXAPARIN 40 MG/0.4 ML SYRINGE SUB-Q (08:47)
[2020-08-17] MEDS: polyethylene glycoL 3350 17 GM POWD.PACK PO (09:30)
[2020-08-17 09:55] LABS: Lactic Acid Reflex 0.6 mmol/L (0.4-2.0)
[2020-08-17 10:19] LABS: Add Urine Microscopic? NO; Appearance Urine Clear (Clear); Bilirubin Urine Negative (Negative); Blood Urine Negative (Negative); Color Urine Yellow (Yellow); Glucose Urine UA Negative (Negative); Ketones Urine Negative (Negative); Leukocyte Esterase Ur Negative LEU/UL (Negative); Nitrate Urine Negative (Negative); Protein Urine Negative (Negative)
--- NOTE | 2020-08-17 10:22 | PC.NURSE ---
Patient transported off of floor via wheelchair for ABD/pelvis CT
--- NOTE | 2020-08-17 10:35 | PC.NURSE ---
Patient transported back to floor via wheelchair
--- NOTE | 2020-08-17 10:51 | P.PN_ITS ---
Progress Note: A&P Assessment and Plan (1) Acute pancreatitis: Qualifiers: Acute pancreatitis complication: unspecified Pancreatitis type: unspecified pancreatitis type Qualified Code(s): K85.90 - Acute pancreatitis without necrosis or infection, unspecified Code(s): K85.90 - Acute pancreatitis without necrosis or infection, unspecified Status: Acute Assessment and Plan: * Improving * CT of the abdomen indicates pancreatitis * Continue pain medication remain n.p.o. and advance diet as tolerated * Continue pain medication with antiemesis, * WBCs-->32.1-->31.2-->27.2-->25.6 * Lactic acid 1.2-->0.6 * CRP 0.5 * Lipase >1500-->>1500-->5140-->790-->122 * Amylase>650-->1289-->439-->99 (2) Fibromyalgia: Code(s): M79.7 - Fibromyalgia Status: Acute Assessment and Plan: * Continue pain medication (3) Hyperlipidemia: Code(s): E78.5 - Hyperlipidemia, unspecified Status: Acute Assessment and Plan: * Continue statins (4) HTN (hypertension): Code(s): I10 - Essential (primary) hypertension Status: Acute Assessment and Plan: * Blood pressure stable * Continue atenolol * Vital signs as ordered * Adjust medication as needed (5) COPD (chronic obstructive pulmonary disease): Code(s): J44.9 - Chronic obstructive pulmonary disease, unspecified Status: Acute Assessment and Plan: * Stable * Continue as needed nebulizers (6) Substance use: Code(s): F19.90 - Other psychoactive substance use, unspecified, uncomplicated Status: Acute Assessment and Plan: * Patient positive for opiates, barbiturates and cannabis * Educated on cessation * patient denies (7) Lumbar burst fracture: Code(s): S32.001A - Stable burst fracture of unspecified lumbar vertebra, initial encounter for closed fracture Status: Acute Assessment and Plan: * Acute * CT indicates glass fracture deformity of L1 * LSO brace ordered * Continue pain medication (8) Thrombocytosis: Code(s): D47.3 - Essential (hemorrhagic) thrombocythemia Status: Acute Assessment and Plan: * Improved possibly secondary to infection * According to peripheral smear pathologist recommend follow-up with a supervisor residential after discharge due to thrombocytosis * Patient platelets 469-->360-->338 (9) Fever: Code(s): R50.9 - Fever, unspecified Status: Acute Assessment and Plan: * Possibly secondary to infection versus pancreatitis * Overnight patient's temperature 100.0-100.9 * Lactic acid within normal limits * UA pending, previous UA without any growth * Repeat blood culture pending, previous blood culture without any growth * crp covid, influenza, legionella and pneumococcal pending (10) Hepatic lesion: Code(s): K76.9 - Liver disease, unspecified Status: Acute Assessment and Plan: * According to patient this is chronic * 08/15/20 indicates a right hepatic lesion 11 x 18 mm, repeat CT indicates a 1.5 cm lesion most likely a slowly filled hemangioma it is recommended that the patient follow-up in 1 year with MRI * Follow-up with primary care physician Review of Systems Review of Systems: Narrative: A 14 organ system Review of Systems was performed and pertinent positives included in the HPI, otherwise remaining ROS is negative. Exam Narrative: Exam Narrative: GENERAL: This is a well-nourished, well-developed patient, in no apparent distress. HEAD: normocephalic, a
--- NOTE | 2020-08-17 10:51 | WPDPN ---
Progress Note: A&P Assessment and Plan (1) Acute pancreatitis: Qualifiers: Acute pancreatitis complication: unspecified Pancreatitis type: unspecified pancreatitis type Qualified Code(s): K85.90 - Acute pancreatitis without necrosis or infection, unspecified Code(s): K85.90 - Acute pancreatitis without necrosis or infection, unspecified Status: Acute Assessment and Plan: Improving CT of the abdomen indicates pancreatitis Continue pain medication remain n.p.o. and advance diet as tolerated Continue pain medication with antiemesis, WBCs-->32.1-->31.2-->27.2-->25.6 Lactic acid 1.2-->0.6 CRP 0.5 Lipase >1500-->>1500-->5140-->790-->122 Amylase>650-->1289-->439-->99 (2) Fibromyalgia: Code(s): M79.7 - Fibromyalgia Status: Acute Assessment and Plan: Continue pain medication (3) Hyperlipidemia: Code(s): E78.5 - Hyperlipidemia, unspecified Status: Acute Assessment and Plan: Continue statins (4) HTN (hypertension): Code(s): I10 - Essential (primary) hypertension Status: Acute Assessment and Plan: Blood pressure stable Continue atenolol Vital signs as ordered Adjust medication as needed (5) COPD (chronic obstructive pulmonary disease): Code(s): J44.9 - Chronic obstructive pulmonary disease, unspecified Status: Acute Assessment and Plan: Stable Continue as needed nebulizers (6) Substance use: Code(s): F19.90 - Other psychoactive substance use, unspecified, uncomplicated Status: Acute Assessment and Plan: Patient positive for opiates, barbiturates and cannabis Educated on cessation patient denies (7) Lumbar burst fracture: Code(s): S32.001A - Stable burst fracture of unspecified lumbar vertebra, initial encounter for closed fracture Status: Acute Assessment and Plan: Acute CT indicates glass fracture deformity of L1 LSO brace ordered Continue pain medication (8) Thrombocytosis: Code(s): D47.3 - Essential (hemorrhagic) thrombocythemia Status: Acute Assessment and Plan: Improved possibly secondary to infection According to peripheral smear pathologist recommend follow-up with a bolt header after discharge due to thrombocytosis Patient platelets 469-->360-->338 (9) Fever: Code(s): R50.9 - Fever, unspecified Status: Acute Assessment and Plan: Possibly secondary to infection versus pancreatitis Overnight patient's temperature 100.0-100.9 Lactic acid within normal limits UA pending, previous UA without any growth Repeat blood culture pending, previous blood culture without any growth crp covid, influenza, legionella and pneumococcal pending (10) Hepatic lesion: Code(s): K76.9 - Liver disease, unspecified Status: Acute Assessment and Plan: According to patient this is chronic 08/15/20 indicates a right hepatic lesion 11 x 18 mm, repeat CT indicates a 1.5 cm lesion most likely a slowly filled hemangioma it is recommended that the patient follow-up in 1 year with MRI Follow-up with primary care physician Review of Systems Review of Systems: Narrative: A 14 organ system Review of Systems was performed and pertinent positives included in the HPI, otherwise remaining ROS is negative. Exam Narrative: Exam Narrative: GENERAL: This is a well-nourished, well-developed patient, in no apparent distress. HEAD: normocephalic, atraumatic. EYES: PERRL. Sclera clear/white. Vision is grossly intact. EARS: External ears normal, auditory canals clear and without drainage, TMs normal without perforation. Hearing grossly intact. NOSE: External nose normal with no obvious nasal discharge, nares without redness, no rhinorrhea. THROAT: Mucous membranes moist, posterior pharynx clear. NECK: Neck supple, non-tender without lymphadenopathy, masses or thyromegaly. CARDIOVASCULAR: Regular rate and rhythm without murm
[2020-08-17 11:41] LABS: CRP > 25.0 mg/dL (0.0-0.9)
[2020-08-17 12:11] LABS: SARS-CoV-2 RNA PCR Positive (Negative)
[2020-08-17 12:42] LABS: Influenza A QL RT-PCR Negative (Negative); Influenza B QL RT-PCR Negative (Negative)
[2020-08-17] MEDS: traMADol HCL (*CRX) 25 MG TABLET PO ×2 (12:51→21:29)
[2020-08-17 14:22] LABS: D Dimer 3.81 mg/L (0.19-0.50)
[2020-08-17] MEDS: DEXAMETHASONE SOD PHOS INJ 4 MG/ML VIAL 6 MG IV PUSH (14:40)
[2020-08-17 16:00] VITALS: BP 131/80; PULSE 95; RESP 20; TEMP 37.1; O2SAT 93
[2020-08-17] MEDS: ALBUTEROL SULFATE (*SP) INHALER 2 PUFF INHALATION ×2 (16:05→20:55)
[2020-08-17] MEDS: ENOXAPARIN 40 MG/0.4 ML SYRINGE 60 MG SUB-Q (20:53)
[2020-08-17] MEDS: LATANOPROST 0.005% OP SOLN 2.5 ML BTL 1 DROP EACH EYE (20:54)
--- NOTE | 2020-08-18 00:01 | PC.NURSE ---
Pt given reglan 5 mg IVP as ordered.
[2020-08-18 00:03] VITALS: BP 91/61; PULSE 72; RESP 20; TEMP 35.7; O2SAT 91
[2020-08-18] MEDS: CYCLOBENZAPRINE HCL 10 MG TABLET PO ×2 (04:00→16:55)
[2020-08-18 06:05] LABS: Hematocrit 41.7 % (35.0-49.0); Hemoglobin 13.4 g/dL (12.0-15.0); Mean Corpuscular HGB Conc 32.1 g/dL (32.0-36.0); Mean Corpuscular Hemoglobin 31.3 pg (27.0-31.0); Mean Corpuscular Volume 97.4 fL (78.0-102.0); Mean Platelet Volume 11.5 fl (9.2-11.8); Platelet Count Result 417 K/mm3 (150-420); Red Blood Count 4.28 M/mm3 (4.20-5.40); Red Cell Distribution Width 13.4 % (11.6-14.4)
[2020-08-18 06:09] LABS: White Blood Count 23.1 K/mm3 (4.8-10.8)
--- NOTE | 2020-08-18 06:11 | PC.NURSE ---
Lab called to report a critical WBC of 23.1. Dr. Sibley contacted regarding WBC of 23.1 and no new orders at this time.
[2020-08-18 06:22] LABS: Alanine Aminotransferase 28 U/L (14-59); Alkaline Phosphatase 123 U/L (46-116); Amylase 59 U/L (25-115); Anion Gap 7 mmol/L (8-16); Aspartate Amino Transferase 15 U/L (15-37); Bilirubin Direct 0.2 mg/dL (0-0.2); Bilirubin,Total 0.6 mg/dL (0.00-1.00); Blood Urea Nitrogen 14 mg/dL (7-18); Calcium 10.1 mg/dL (8.5-10.1); Carbon Dioxide 28 mmol/L (21-32); Chloride 100 mmol/L (98-108); Estimated CRCL calculation 68 ml/min; Estimated Glomerular Filt Rate > 60; Glucose 125 mg/dL (70-99); Lipase 93 U/L (73-393); Magnesium 2.2 mg/dL (1.8-2.4); Osmolality Calculated 281 mOsm/kg (285-295); Potassium 4.2 mmol/L (3.5-5.1); Sodium 135 mmol/L (136-145); Total Protein 6.6 g/dL (6.4-8.2)
[2020-08-18] MEDS: METOCLOPRAMIDE HCL INJ 10 MG/2 ML VIAL 5 MG IV PUSH ×3 (06:29→12:27)
--- NOTE | 2020-08-18 07:13 | PC.NURSE ---
Pt given reglan 5 mg IVP as ordered.
[2020-08-18 08:00] VITALS: BP 125/83; PULSE 79; RESP 18; TEMP 36.7; O2SAT 93
[2020-08-18] MEDS: traMADol HCL (*CRX) 25 MG TABLET PO ×2 (09:30→21:46)
[2020-08-18] MEDS: ALBUTEROL SULFATE (*SP) INHALER 2 PUFF INHALATION ×3 (09:30→21:45)
[2020-08-18] MEDS: guaiFENesin 12 HR 600 MG TABCR 1200 MG PO ×2 (09:31→21:46)
[2020-08-18 09:32] VITALS: PULSE 79
[2020-08-18] MEDS: BENZONATATE 100 MG CAPSULE 200 MG PO ×3 (09:32→16:55)
[2020-08-18] MEDS: DEXAMETHASONE 2 MG TABLET 6 MG PO (09:32)
[2020-08-18] MEDS: ATORVASTATIN 10 MG TABLET PO (09:32)
[2020-08-18] MEDS: atenoloL 50 MG TABLET PO (09:32)
[2020-08-18] MEDS: MAGNESIUM OXIDE 400 MG TABLET PO (09:33)
[2020-08-18] MEDS: ENOXAPARIN 40 MG/0.4 ML SYRINGE 60 MG SUB-Q ×2 (09:33→21:47)
[2020-08-18] MEDS: PANTOPRAZOLE SODIUM IV 40 MG VIAL IV PUSH ×2 (09:34→21:45)
[2020-08-18] MEDS: UMECLIDINIUM BROMIDE 62.5 MCG ELLIPTA 1 PUFF INHALATION (09:38)
[2020-08-18] MEDS: FLUTICASONE PROP 220 MCG (*SP) 12 GM INHALER 1 PUFF INHALATION ×2 (09:51→22:12)
--- NOTE | 2020-08-18 10:31 | P.PN_ITS ---
Progress Note: A&P Assessment and Plan (1) Acute pancreatitis: Qualifiers: Acute pancreatitis complication: unspecified Pancreatitis type: unspecified pancreatitis type Qualified Code(s): K85.90 - Acute pancreatitis without necrosis or infection, unspecified Code(s): K85.90 - Acute pancreatitis without necrosis or infection, unspecified Status: Acute Assessment and Plan: * Improving * CT of the abdomen indicates pancreatitis * Continue pain medication remain n.p.o. and advance diet as tolerated * Continue pain medication with antiemesis, * WBCs-->32.1-->31.2-->27.2-->25.6-->23.1 * Lactic acid 1.2-->0.6 * CRP 0.5 * Lipase >1500-->>1500-->5140-->790-->122 * Amylase>650-->1289-->439-->99 (2) Fibromyalgia: Code(s): M79.7 - Fibromyalgia Status: Acute Assessment and Plan: * Continue pain medication (3) Hyperlipidemia: Code(s): E78.5 - Hyperlipidemia, unspecified Status: Acute Assessment and Plan: * Continue statins (4) HTN (hypertension): Code(s): I10 - Essential (primary) hypertension Status: Acute Assessment and Plan: * Blood pressure stable * Continue atenolol * Vital signs as ordered * Adjust medication as needed (5) COPD (chronic obstructive pulmonary disease): Code(s): J44.9 - Chronic obstructive pulmonary disease, unspecified Status: Acute Assessment and Plan: * Still requiring supplementary oxygen * Continue as needed nebulizers * Patient will require home O2 evaluation (6) Substance use: Code(s): F19.90 - Other psychoactive substance use, unspecified, uncomplicated Status: Acute Assessment and Plan: * Patient positive for opiates, barbiturates and cannabis * Educated on cessation * patient denies (7) Lumbar burst fracture: Code(s): S32.001A - Stable burst fracture of unspecified lumbar vertebra, initial encounter for closed fracture Status: Acute Assessment and Plan: * Acute * CT indicates glass fracture deformity of L1 * TLSO brace ordered waiting on approval from the insurance company * Continue pain medication (8) Thrombocytosis: Code(s): D47.3 - Essential (hemorrhagic) thrombocythemia Status: Acute Assessment and Plan: * Improved possibly secondary to infection * According to peripheral smear pathologist recommend follow-up with a smokehouse worker after discharge due to thrombocytosis * Patient platelets 469-->360-->338-->417 (9) Fever: Code(s): R50.9 - Fever, unspecified Status: Acute Assessment and Plan: * Resolved * Possibly secondary to infection versus pancreatitis versus Covid * Overnight patient's temperature 100.0-100.9 on 08/17/2020 * Lactic acid within normal limits * UA negative, previous UA without any growth * Repeat blood culture pending, previous blood culture without any growth * crp covid, influenza, legionella and pneumococcal pending (10) Hepatic lesion: Code(s): K76.9 - Liver disease, unspecified Status: Acute Assessment and Plan: * According to patient this is chronic * 08/15/20 indicates a right hepatic lesion 11 x 18 mm, repeat CT indicates a 1.5 cm lesion most likely a slowly filled hemangioma it is recommended that the patient follow-up in 1 year with MRI * Follow-up with primary care physician (11) COVID-19: Code(s): U07.1 - COVID-19 Status: Acute Assessment and Plan: * Started dexamethasone * Patient added time frame for remdesivir * Off isolation Ma
--- NOTE | 2020-08-18 10:31 | WPDPN ---
Progress Note: A&P Assessment and Plan (1) Acute pancreatitis: Qualifiers: Acute pancreatitis complication: unspecified Pancreatitis type: unspecified pancreatitis type Qualified Code(s): K85.90 - Acute pancreatitis without necrosis or infection, unspecified Code(s): K85.90 - Acute pancreatitis without necrosis or infection, unspecified Status: Acute Assessment and Plan: Improving CT of the abdomen indicates pancreatitis Continue pain medication remain n.p.o. and advance diet as tolerated Continue pain medication with antiemesis, WBCs-->32.1-->31.2-->27.2-->25.6-->23.1 Lactic acid 1.2-->0.6 CRP 0.5 Lipase >1500-->>1500-->5140-->790-->122 Amylase>650-->1289-->439-->99 (2) Fibromyalgia: Code(s): M79.7 - Fibromyalgia Status: Acute Assessment and Plan: Continue pain medication (3) Hyperlipidemia: Code(s): E78.5 - Hyperlipidemia, unspecified Status: Acute Assessment and Plan: Continue statins (4) HTN (hypertension): Code(s): I10 - Essential (primary) hypertension Status: Acute Assessment and Plan: Blood pressure stable Continue atenolol Vital signs as ordered Adjust medication as needed (5) COPD (chronic obstructive pulmonary disease): Code(s): J44.9 - Chronic obstructive pulmonary disease, unspecified Status: Acute Assessment and Plan: Still requiring supplementary oxygen Continue as needed nebulizers Patient will require home O2 evaluation (6) Substance use: Code(s): F19.90 - Other psychoactive substance use, unspecified, uncomplicated Status: Acute Assessment and Plan: Patient positive for opiates, barbiturates and cannabis Educated on cessation patient denies (7) Lumbar burst fracture: Code(s): S32.001A - Stable burst fracture of unspecified lumbar vertebra, initial encounter for closed fracture Status: Acute Assessment and Plan: Acute CT indicates glass fracture deformity of L1 TLSO brace ordered waiting on approval from the insurance company Continue pain medication (8) Thrombocytosis: Code(s): D47.3 - Essential (hemorrhagic) thrombocythemia Status: Acute Assessment and Plan: Improved possibly secondary to infection According to peripheral smear pathologist recommend follow-up with a cross country and track and field coach after discharge due to thrombocytosis Patient platelets 469-->360-->338-->417 (9) Fever: Code(s): R50.9 - Fever, unspecified Status: Acute Assessment and Plan: Resolved Possibly secondary to infection versus pancreatitis versus Covid Overnight patient's temperature 100.0-100.9 on 08/17/2020 Lactic acid within normal limits UA negative, previous UA without any growth Repeat blood culture pending, previous blood culture without any growth crp covid, influenza, legionella and pneumococcal pending (10) Hepatic lesion: Code(s): K76.9 - Liver disease, unspecified Status: Acute Assessment and Plan: According to patient this is chronic 08/15/20 indicates a right hepatic lesion 11 x 18 mm, repeat CT indicates a 1.5 cm lesion most likely a slowly filled hemangioma it is recommended that the patient follow-up in 1 year with MRI Follow-up with primary care physician (11) COVID-19: Code(s): U07.1 - COVID-19 Status: Acute Assessment and Plan: Started dexamethasone Patient added time frame for remdesivir Off isolation August 27, 2020 Continue supplementary oxygen and inhalers Remain quarantine Review of Systems Review of Systems: Narrative: A 14 organ system Review of Systems was performed and pertinent positives included in the HPI, otherwise remaining ROS is negative. Exam Narrative: Exam Narrative: GENERAL: This is a well-nourished, well-developed patient, in no apparent distress. HEAD: normocephalic, atraumatic. EYES: PERRL. Sclera clear/white. Vision is jassi
[2020-08-18 16:00] VITALS: BP 118/76; PULSE 77; RESP 18; TEMP 36.2; O2SAT 95
[2020-08-18] MEDS: HYDROcodone/acetaminophen (*CRX) 7.5-325 MG TABLET 1 TAB PO (16:55)
[2020-08-18] MEDS: traZODone HCL 50 MG TABLET PO (21:46)
[2020-08-18] MEDS: DICYCLOMINE HCL 10 MG CAPSULE 20 MG PO (21:47)
[2020-08-18] MEDS: LATANOPROST 0.005% OP SOLN 2.5 ML BTL 1 DROP EACH EYE (21:48)
[2020-08-19] VITALS: BP 99/56; PULSE 70; RESP 18; TEMP 36.8; O2SAT 94
[2020-08-19] MEDS: HYDROcodone/acetaminophen (*CRX) 7.5-325 MG TABLET 1 TAB PO ×2 (01:56→17:23)
[2020-08-19] MEDS: CYCLOBENZAPRINE HCL 10 MG TABLET PO ×2 (01:58→21:50)
[2020-08-19 05:27] LABS: Hematocrit 36.4 % (35.0-49.0); Hemoglobin 11.7 g/dL (12.0-15.0); Mean Corpuscular HGB Conc 32.1 g/dL (32.0-36.0); Mean Corpuscular Hemoglobin 31.7 pg (27.0-31.0); Mean Corpuscular Volume 98.6 fL (78.0-102.0); Mean Platelet Volume 10.6 fl (9.2-11.8); Platelet Count Result 434 K/mm3 (150-420); Red Blood Count 3.69 M/mm3 (4.20-5.40); Red Cell Distribution Width 13.3 % (11.6-14.4)
[2020-08-19 05:42] LABS: Alanine Aminotransferase 40 U/L (14-59); Albumin Level 1.9 g/dL (3.4-5.0); Alkaline Phosphatase 96 U/L (46-116); Anion Gap 7 mmol/L (8-16); Aspartate Amino Transferase 17 U/L (15-37); Bilirubin,Total 0.4 mg/dL (0.00-1.00); Blood Urea Nitrogen 19 mg/dL (7-18); Carbon Dioxide 27 mmol/L (21-32); Chloride 103 mmol/L (98-108); Estimated CRCL calculation 66 ml/min; Estimated Glomerular Filt Rate > 60; Glucose 149 mg/dL (70-99); Osmolality Calculated 289 mOsm/kg (285-295); Potassium 4.7 mmol/L (3.5-5.1); Sodium 137 mmol/L (136-145); Total Protein 5.7 g/dL (6.4-8.2)
[2020-08-19] MEDS: ALBUTEROL SULFATE (*SP) INHALER 2 PUFF INHALATION ×4 (05:46→21:46)
--- NOTE | 2020-08-19 05:50 | PC.NURSE ---
Dr. Macias notified of pt's critical WBC of 20.0.
[2020-08-19 08:00] VITALS: BP 122/79; PULSE 76; RESP 20; TEMP 36.9; O2SAT 93
[2020-08-19] MEDS: PANTOPRAZOLE SODIUM IV 40 MG VIAL IV PUSH ×2 (09:50→21:46)
[2020-08-19] MEDS: UMECLIDINIUM BROMIDE 62.5 MCG ELLIPTA 1 PUFF INHALATION (09:51)
[2020-08-19] MEDS: FLUTICASONE PROP 220 MCG (*SP) 12 GM INHALER 1 PUFF INHALATION ×2 (09:51→21:45)
[2020-08-19] MEDS: ENOXAPARIN 40 MG/0.4 ML SYRINGE 60 MG SUB-Q ×2 (09:52→21:47)
[2020-08-19] MEDS: DEXAMETHASONE 2 MG TABLET 6 MG PO (09:54)
[2020-08-19] MEDS: guaiFENesin 12 HR 600 MG TABCR 1200 MG PO ×2 (09:54→21:47)
[2020-08-19 09:55] VITALS: PULSE 76
[2020-08-19] MEDS: atenoloL 50 MG TABLET PO (09:55)
[2020-08-19] MEDS: BENZONATATE 100 MG CAPSULE 200 MG PO ×3 (09:55→17:00)
[2020-08-19] MEDS: ATORVASTATIN 10 MG TABLET PO (09:56)
[2020-08-19] MEDS: MAGNESIUM OXIDE 400 MG TABLET PO (09:56)
[2020-08-19] MEDS: METOCLOPRAMIDE HCL 10 MG TABLET 5 MG PO ×3 (11:59→21:48)
--- NOTE | 2020-08-19 12:30 | P.PN_ITS ---
Progress Note: A&P Assessment and Plan (1) Acute pancreatitis: Qualifiers: Acute pancreatitis complication: unspecified Pancreatitis type: unspecified pancreatitis type Qualified Code(s): K85.90 - Acute pancreatitis without necrosis or infection, unspecified Code(s): K85.90 - Acute pancreatitis without necrosis or infection, unspecified Status: Acute Assessment and Plan: * Improving * CT of the abdomen indicates pancreatitis * Continue pain medication remain * Patient tolerating meals * Continue pain medication with antiemesis, * WBCs-->32.1-->31.2-->27.2-->25.6-->23.1-->20 * Lactic acid 1.2-->0.6 * CRP 0.5 * Lipase >1500-->>1500-->5140-->790-->122 * Amylase>650-->1289-->439-->99 * Nausea and vomiting has resolved (2) Fibromyalgia: Code(s): M79.7 - Fibromyalgia Status: Acute Assessment and Plan: * Continue pain medication (3) Hyperlipidemia: Code(s): E78.5 - Hyperlipidemia, unspecified Status: Acute Assessment and Plan: * Continue statins (4) HTN (hypertension): Code(s): I10 - Essential (primary) hypertension Status: Acute Assessment and Plan: * Blood pressure stable * Continue atenolol * Vital signs as ordered * Adjust medication as needed (5) COPD (chronic obstructive pulmonary disease): Code(s): J44.9 - Chronic obstructive pulmonary disease, unspecified Status: Acute Assessment and Plan: * Still requiring supplementary oxygen * Continue as needed nebulizers * Patient will require home O2 evaluation (6) Substance use: Code(s): F19.90 - Other psychoactive substance use, unspecified, uncomplicated Status: Acute Assessment and Plan: * Patient positive for opiates, barbiturates and cannabis * Educated on cessation * patient denies (7) Lumbar burst fracture: Code(s): S32.001A - Stable burst fracture of unspecified lumbar vertebra, initial encounter for closed fracture Status: Acute Assessment and Plan: * Acute * CT indicates glass fracture deformity of L1 * TLSO brace ordered waiting on approval from the insurance company * Continue pain medication (8) Thrombocytosis: Code(s): D47.3 - Essential (hemorrhagic) thrombocythemia Status: Acute Assessment and Plan: * Improved possibly secondary to infection * According to peripheral smear pathologist recommend follow-up with a drama critic after discharge due to thrombocytosis * Patient platelets 469-->360-->338-->417-->434 (9) Fever: Code(s): R50.9 - Fever, unspecified Status: Acute Assessment and Plan: * Resolved * Possibly secondary to infection versus pancreatitis versus Covid * Overnight patient's temperature 100.0-100.9 on 08/17/2020 * Lactic acid within normal limits * UA negative, previous UA without any growth * Repeat blood culture pending, previous blood culture without any growth * crp covid, influenza, legionella and pneumococcal pending (10) Hepatic lesion: Code(s): K76.9 - Liver disease, unspecified Status: Acute Assessment and Plan: * According to patient this is chronic * 08/15/20 indicates a right hepatic lesion 11 x 18 mm, repeat CT indicates a 1.5 cm lesion most likely a slowly filled hemangioma it is recommended that the patient follow-up in 1 year with MRI * Follow-up with primary care physician (11) COVID-19: Code(s): U07.1 - COVID-19 Status: Acute Assessment and Plan: * Continue dexamethasone * Patient added t
--- NOTE | 2020-08-19 12:30 | WPDPN ---
Progress Note: A&P Assessment and Plan (1) Acute pancreatitis: Qualifiers: Acute pancreatitis complication: unspecified Pancreatitis type: unspecified pancreatitis type Qualified Code(s): K85.90 - Acute pancreatitis without necrosis or infection, unspecified Code(s): K85.90 - Acute pancreatitis without necrosis or infection, unspecified Status: Acute Assessment and Plan: Improving CT of the abdomen indicates pancreatitis Continue pain medication remain Patient tolerating meals Continue pain medication with antiemesis, WBCs-->32.1-->31.2-->27.2-->25.6-->23.1-->20 Lactic acid 1.2-->0.6 CRP 0.5 Lipase >1500-->>1500-->5140-->790-->122 Amylase>650-->1289-->439-->99 Nausea and vomiting has resolved (2) Fibromyalgia: Code(s): M79.7 - Fibromyalgia Status: Acute Assessment and Plan: Continue pain medication (3) Hyperlipidemia: Code(s): E78.5 - Hyperlipidemia, unspecified Status: Acute Assessment and Plan: Continue statins (4) HTN (hypertension): Code(s): I10 - Essential (primary) hypertension Status: Acute Assessment and Plan: Blood pressure stable Continue atenolol Vital signs as ordered Adjust medication as needed (5) COPD (chronic obstructive pulmonary disease): Code(s): J44.9 - Chronic obstructive pulmonary disease, unspecified Status: Acute Assessment and Plan: Still requiring supplementary oxygen Continue as needed nebulizers Patient will require home O2 evaluation (6) Substance use: Code(s): F19.90 - Other psychoactive substance use, unspecified, uncomplicated Status: Acute Assessment and Plan: Patient positive for opiates, barbiturates and cannabis Educated on cessation patient denies (7) Lumbar burst fracture: Code(s): S32.001A - Stable burst fracture of unspecified lumbar vertebra, initial encounter for closed fracture Status: Acute Assessment and Plan: Acute CT indicates glass fracture deformity of L1 TLSO brace ordered waiting on approval from the insurance company Continue pain medication (8) Thrombocytosis: Code(s): D47.3 - Essential (hemorrhagic) thrombocythemia Status: Acute Assessment and Plan: Improved possibly secondary to infection According to peripheral smear pathologist recommend follow-up with a orthopaedic doctor after discharge due to thrombocytosis Patient platelets 469-->360-->338-->417-->434 (9) Fever: Code(s): R50.9 - Fever, unspecified Status: Acute Assessment and Plan: Resolved Possibly secondary to infection versus pancreatitis versus Covid Overnight patient's temperature 100.0-100.9 on 08/17/2020 Lactic acid within normal limits UA negative, previous UA without any growth Repeat blood culture pending, previous blood culture without any growth crp covid, influenza, legionella and pneumococcal pending (10) Hepatic lesion: Code(s): K76.9 - Liver disease, unspecified Status: Acute Assessment and Plan: According to patient this is chronic 08/15/20 indicates a right hepatic lesion 11 x 18 mm, repeat CT indicates a 1.5 cm lesion most likely a slowly filled hemangioma it is recommended that the patient follow-up in 1 year with MRI Follow-up with primary care physician (11) COVID-19: Code(s): U07.1 - COVID-19 Status: Acute Assessment and Plan: Continue dexamethasone Patient added time frame for remdesivir Off isolation August 27, 2020 Continue supplementary oxygen and inhalers Remain quarantine Review of Systems Review of Systems: Narrative: A 14 organ system Review of Systems was performed and pertinent positives included in the HPI, otherwise remaining ROS is negative. Exam Narrative: Exam Narrative: GENERAL: This is a well-nourished, well-developed patient, in no apparent distress. HEAD: normocephalic, atraumatic. EYES: PER
[2020-08-19 16:00] VITALS: BP 113/75; PULSE 71; RESP 18; TEMP 36.7; O2SAT 95
[2020-08-19] MEDS: LATANOPROST 0.005% OP SOLN 2.5 ML BTL 1 DROP EACH EYE (21:46)
[2020-08-19] MEDS: traMADol HCL (*CRX) 25 MG TABLET PO (21:49)
[2020-08-19 23:32] VITALS: BP 130/89; PULSE 70; RESP 20; TEMP 36.7; O2SAT 93
[2020-08-20 05:49] LABS: Hematocrit 39.3 % (35.0-49.0); Hemoglobin 12.7 g/dL (12.0-15.0); Mean Corpuscular HGB Conc 32.3 g/dL (32.0-36.0); Mean Corpuscular Hemoglobin 31.7 pg (27.0-31.0); Mean Platelet Volume 10.3 fl (9.2-11.8); Platelet Count Result 420 K/mm3 (150-420); Red Blood Count 4.01 M/mm3 (4.20-5.40); Red Cell Distribution Width 13.2 % (11.6-14.4); White Blood Count 17.4 K/mm3 (4.8-10.8)
[2020-08-20] MEDS: ALBUTEROL SULFATE (*SP) INHALER 2 PUFF INHALATION ×2 (05:52→10:28)
[2020-08-20] MEDS: CYCLOBENZAPRINE HCL 10 MG TABLET PO ×2 (05:53→09:46)
[2020-08-20] MEDS: HYDROcodone/acetaminophen (*CRX) 7.5-325 MG TABLET 1 TAB PO ×2 (05:53→12:30)
[2020-08-20] MEDS: METOCLOPRAMIDE HCL 10 MG TABLET 5 MG PO ×2 (05:53→12:29)
[2020-08-20 06:04] LABS: Alanine Aminotransferase 39 U/L (14-59); Albumin Level 1.9 g/dL (3.4-5.0); Alkaline Phosphatase 91 U/L (46-116); Anion Gap 6 mmol/L (8-16); Aspartate Amino Transferase 14 U/L (15-37); Bilirubin,Total 0.5 mg/dL (0.00-1.00); Blood Urea Nitrogen 20 mg/dL (7-18); Calcium 9.3 mg/dL (8.5-10.1); Carbon Dioxide 27 mmol/L (21-32); Chloride 103 mmol/L (98-108); Estimated CRCL calculation 70 ml/min; Estimated Glomerular Filt Rate > 60; Glucose 119 mg/dL (70-99); Osmolality Calculated 285 mOsm/kg (285-295); Potassium 4.6 mmol/L (3.5-5.1); Sodium 136 mmol/L (136-145); Total Protein 5.7 g/dL (6.4-8.2)
[2020-08-20 07:46] VITALS: BP 136/83; PULSE 71; RESP 20; TEMP 37.1; O2SAT 95
--- NOTE | 2020-08-20 07:56 | P.DS_ITS ---
DS: Admitting Diagnosis Admitting Diagnosis Admitting Diagnosis: Covid pneumonia, pancreatitis DS: Discharge Diagnosis Discharge Diagnosis (1) Acute pancreatitis: Qualifiers: Acute pancreatitis complication: unspecified Pancreatitis type: unspecified pancreatitis type Qualified Code(s): K85.90 - Acute pancreatitis without necrosis or infection, unspecified Code(s): K85.90 - Acute pancreatitis without necrosis or infection, unspecified Status: Acute Assessment and Plan: * Improving * CT of the abdomen indicates pancreatitis * Continue pain medication remain * Patient tolerating meals * Continue pain medication with antiemesis, * WBCs-->32.1-->31.2-->27.2-->25.6-->23.1-->20-->17.4 * Lactic acid 1.2-->0.6 * CRP 0.5 * Lipase >1500-->>1500-->5140-->790-->122 * Amylase>650-->1289-->439-->99 * Nausea and vomiting has resolved (2) Fibromyalgia: Code(s): M79.7 - Fibromyalgia Status: Acute Assessment and Plan: * Continue pain medication (3) Hyperlipidemia: Code(s): E78.5 - Hyperlipidemia, unspecified Status: Acute Assessment and Plan: * Continue statins (4) HTN (hypertension): Code(s): I10 - Essential (primary) hypertension Status: Acute Assessment and Plan: * Blood pressure stable * Continue atenolol (5) COPD (chronic obstructive pulmonary disease): Code(s): J44.9 - Chronic obstructive pulmonary disease, unspecified Status: Acute Assessment and Plan: * Still requiring supplementary oxygen * Continue as needed nebulizers * Home to evaluate indicate patient does not need oxygen at home (6) Substance use: Code(s): F19.90 - Other psychoactive substance use, unspecified, uncomplicated Status: Acute Assessment and Plan: * Patient positive for opiates, barbiturates and cannabis * Educated on cessation * patient denies * Patient concerned with pain medication and informed her that she would have to follow-up with her primary care physician for any additional prescription (7) Lumbar burst fracture: Code(s): S32.001A - Stable burst fracture of unspecified lumbar vertebra, initial encounter for closed fracture Status: Acute Assessment and Plan: * Acute * CT indicates glass fracture deformity of L1 * TLSO brace ordered waiting on approval from the insurance company company will need to go to patient's house after she is off quarantine to fitted for brace * Continue pain medication (8) Thrombocytosis: Code(s): D47.3 - Essential (hemorrhagic) thrombocythemia Status: Acute Assessment and Plan: * [place] secondary to infection * According to peripheral smear pathologist recommend follow-up with a medical and scientific illustrator after discharge due to thrombocytosis * Patient platelets 469-->360-->338-->417-->434-->420 (9) Fever: Code(s): R50.9 - Fever, unspecified Status: Acute Assessment and Plan: * Resolved * Possibly secondary to infection versus pancreatitis versus Covid * Overnight patient's temperature 100.0-100.9 on 08/17/2020 * Lactic acid within normal limits * UA negative, previous UA without any growth * Repeat blood culture preliminary no growth, previous blood culture without any growth * legionella and pneumococcal pending * Covid positive (10) Hepatic lesion: Code(s): K76.9 - Liver disease, unspecified Status: Acute Assessment and Plan: * According to patient this is chronic * 08/15/20 indicates a right hepatic lesion 11 x 18 mm, repeat CT
--- NOTE | 2020-08-20 07:56 | PM.DS ---
DS: Admitting Diagnosis Admitting Diagnosis Admitting Diagnosis: Covid pneumonia, pancreatitis DS: Discharge Diagnosis Discharge Diagnosis (1) Acute pancreatitis: Qualifiers: Acute pancreatitis complication: unspecified Pancreatitis type: unspecified pancreatitis type Qualified Code(s): K85.90 - Acute pancreatitis without necrosis or infection, unspecified Code(s): K85.90 - Acute pancreatitis without necrosis or infection, unspecified Status: Acute Assessment and Plan: Improving CT of the abdomen indicates pancreatitis Continue pain medication remain Patient tolerating meals Continue pain medication with antiemesis, WBCs-->32.1-->31.2-->27.2-->25.6-->23.1-->20-->17.4 Lactic acid 1.2-->0.6 CRP 0.5 Lipase >1500-->>1500-->5140-->790-->122 Amylase>650-->1289-->439-->99 Nausea and vomiting has resolved (2) Fibromyalgia: Code(s): M79.7 - Fibromyalgia Status: Acute Assessment and Plan: Continue pain medication (3) Hyperlipidemia: Code(s): E78.5 - Hyperlipidemia, unspecified Status: Acute Assessment and Plan: Continue statins (4) HTN (hypertension): Code(s): I10 - Essential (primary) hypertension Status: Acute Assessment and Plan: Blood pressure stable Continue atenolol (5) COPD (chronic obstructive pulmonary disease): Code(s): J44.9 - Chronic obstructive pulmonary disease, unspecified Status: Acute Assessment and Plan: Still requiring supplementary oxygen Continue as needed nebulizers Home to evaluate indicate patient does not need oxygen at home (6) Substance use: Code(s): F19.90 - Other psychoactive substance use, unspecified, uncomplicated Status: Acute Assessment and Plan: Patient positive for opiates, barbiturates and cannabis Educated on cessation patient denies Patient concerned with pain medication and informed her that she would have to follow-up with her primary care physician for any additional prescription (7) Lumbar burst fracture: Code(s): S32.001A - Stable burst fracture of unspecified lumbar vertebra, initial encounter for closed fracture Status: Acute Assessment and Plan: Acute CT indicates glass fracture deformity of L1 TLSO brace ordered waiting on approval from the insurance company company will need to go to patient's house after she is off quarantine to fitted for brace Continue pain medication (8) Thrombocytosis: Code(s): D47.3 - Essential (hemorrhagic) thrombocythemia Status: Acute Assessment and Plan: [place] secondary to infection According to peripheral smear pathologist recommend follow-up with a ethologist after discharge due to thrombocytosis Patient platelets 469-->360-->338-->417-->434-->420 (9) Fever: Code(s): R50.9 - Fever, unspecified Status: Acute Assessment and Plan: Resolved Possibly secondary to infection versus pancreatitis versus Covid Overnight patient's temperature 100.0-100.9 on 08/17/2020 Lactic acid within normal limits UA negative, previous UA without any growth Repeat blood culture preliminary no growth, previous blood culture without any growth legionella and pneumococcal pending Covid positive (10) Hepatic lesion: Code(s): K76.9 - Liver disease, unspecified Status: Acute Assessment and Plan: According to patient this is chronic 08/15/20 indicates a right hepatic lesion 11 x 18 mm, repeat CT indicates a 1.5 cm lesion most likely a slowly filled hemangioma it is recommended that the patient follow-up in 1 year with MRI Follow-up with primary care physician (11) COVID-19: Code(s): U07.1 - COVID-19 Status: Acute Assessment and Plan: Continue dexamethasone Patient added time frame for remdesivir Off isolation August 27, 2020 Continue supplementary oxygen and inhalers Remain quarantine DS: [facility]
[2020-08-20 08:15] VITALS: PULSE 68; O2SAT 93
[2020-08-20 08:18] VITALS: PULSE 74; O2SAT 93
--- NOTE | 2020-08-20 09:06 | HOMEO2EVAL ---
Evaluation was performed at [facility] Home Oxygen Evaluation RC: Home Oxygen (O2) Evaluation Start: 08/20/20 07:41 Freq: ONCE Status: Active Protocol: RPE Activity Type Activity Date Activity User E-Sign Co-Sign Detail Recorded Client Recorded Date Recorded By Document 08/20/20 08:15 GINA [id number] 08/20/20 09:05 GINA Document 08/20/20 08:18 GINA [id number] 08/20/20 09:05 GINA 08/20/20 08/20/20 08:15 08:18 Home O2 Evaluation Test Phase Resting Exercise Oxygen Delivery Room Air Room Air Pulse Oximetry (90-100 %) 93 93 Pulse Rate (60-100 beats/min) 68 74 Activity Tolerance Good Rating of Perceived Dyspnea (PD) +2 Mild, Some Difficulty, Noticeable to the Observer Rate of Perceived Exertion (PE) 11 Fairly light Ambulation Distance (feet) 150 Home Oxygen Evaluation Comments walked using walker, on room air, in room, +COVID. No difficulties. Maintained Sp02 >90%. Treatment Charges O2 Evaluation - Inpatient
[2020-08-20] MEDS: ENOXAPARIN 40 MG/0.4 ML SYRINGE 60 MG SUB-Q (09:38)
[2020-08-20] MEDS: PANTOPRAZOLE SODIUM IV 40 MG VIAL IV PUSH (09:39)
[2020-08-20 09:41] VITALS: PULSE 71
[2020-08-20] MEDS: ATORVASTATIN 10 MG TABLET PO (09:41)
[2020-08-20] MEDS: DEXAMETHASONE 2 MG TABLET 6 MG PO (09:41)
[2020-08-20] MEDS: guaiFENesin 12 HR 600 MG TABCR 1200 MG PO (09:41)
[2020-08-20] MEDS: BENZONATATE 100 MG CAPSULE 200 MG PO (09:41)
[2020-08-20] MEDS: atenoloL 50 MG TABLET PO (09:41)
[2020-08-20] MEDS: UMECLIDINIUM BROMIDE 62.5 MCG ELLIPTA 1 PUFF INHALATION (09:42)
[2020-08-20] MEDS: MAGNESIUM OXIDE 400 MG TABLET PO (09:42)
[2020-08-20] MEDS: FLUTICASONE PROP 220 MCG (*SP) 12 GM INHALER 1 PUFF INHALATION (09:43)
[2020-08-20] MEDS: traMADol HCL (*CRX) 25 MG TABLET PO (09:47)
--- NOTE | 2020-08-20 12:45 | PC.NURSE ---
Patient discharged to home. Transported off of floor via wheelchair to personal vehicle. Wheeled walker to be delivered to patient's home. Patient verbalized understanding of discharge orders.
[2020-08-21 09:27] LABS: Legionella pneumophila Ag Ur Not Detected (Not Detected)
--- NOTE | 2020-08-21 10:47 | PC.NURSE ---
Pt states she received and understood her discharge instructions. Pt also states everyone was great.
[2020-08-21 13:50] LABS: Pneumococcal Antigen Urine Not Detected (Not Detected)
== END 2020-08-20 12:45 | disposition home or self-care (01) | DRG 282 ==
LOC: CHSED 23:09 → CHS2ND 08-15 03:44
PROVIDERS: Nurse Practitioner; Admitting Provider Emergency Medicine; Emergency Provider Emergency Medicine; PCP Family Medicine; Visit Provider Emergency Medicine
DX: K85.90 Acute pancreatitis without necrosis or infection, unspecified (principal); U07.1 COVID-19; S32.001A Stable burst fracture of unspecified lumbar vertebra, initial encounter for closed fracture; I10 Essential (primary) hypertension; D47.3 Essential (hemorrhagic) thrombocythemia; E78.5 Hyperlipidemia, unspecified; J44.9 Chronic obstructive pulmonary disease, unspecified; K76.9 Liver disease, unspecified; K57.30 Diverticulosis of large intestine without perforation or abscess without bleeding; M79.7 Fibromyalgia; R73.01 Impaired fasting glucose; F12.90 Cannabis use, unspecified, uncomplicated; Z90.49 Acquired absence of other specified parts of digestive tract; Z87.891 Personal history of nicotine dependence
CPT/HCPCS: 36415; 71045; 71275; 74177; 74178; 80053; 80061; 80307; 81001; 81003; 82150; 82248; 82948; 83605; 83690; 83735; 84484; 85025; 85027; 85055; 85380; 85610; 85730; 86140; 87040; 87086; 87449; 87502; 87899; 93005; 94618; 96361; 96374; 96375; 97110; 97161; 97165; 97530; 97535; 99285; A9270; C9113; C9803; J1100; J1170; J1650; J2405; J2543; J2765; J7030; J7121; J8540; Q9967; U0003; U0005

== ENCOUNTER 2020-10-10 16:55 | Outpatient (CLI) | payer OTHER, SELFPAY ==
--- NOTE | ~2020-10-10 | XR_ITS ---
XR thoracic spine 3V DATE: 10/10/2020 17:28 INDICATION: Mid and lower back pain for 3 weeks TECHNIQUE: AP, lateral, swimmer views COMPARISON: 08/11/2018 CT thorax FINDINGS: There is diffuse osteopenia. Mild thoracic scoliosis. There is degenerative spurring of the mid and lower thoracic spine. Mild anterior wedge compression fracture deformity of L1. The thoracic pedicles are intact. No paraspinal soft tissue thickening. Surgical clips, right upper quadrant, consistent with cholecystectomy. IMPRESSION: Diffuse left. Scoliosis Degenerative spurring of the thoracic spine Mild anterior wedge compression fracture of L1 Reviewed, dictated and finalized at location A.
--- NOTE | ~2020-10-10 | XR_ITS ---
XR lumbar spine 2-3V DATE: 10/10/2020 17:28 INDICATION: Mid back pain for 3 weeks TECHNIQUE: AP, lateral, coned lateral lumbosacral views COMPARISON: 08/17/2020 CT abdomen pelvis FINDINGS: There is diffuse osteopenia. There is minimal dextroscoliosis of the lumbar spine. Mild anterior wedging and loss of height of L1 consistent with fracture. Upon correlation with CT abdomen pelvis, there is mild posterior projection of the upper aspect of the L1 fracture into the spinal canal, consistent with burst fracture. No other lumbar fracture is evident. No spondylolisthesis. Lumbar and lumbosacral interspaces are rel atively well preserved. Minimal degenerative spurring of the lumbar spine. The sacroiliac joints are intact. Ascending colon bowel sutures. Status post cholecystectomy. IMPRESSION: Stable L1 burst fracture since 08/17/2020 Diffuse osteopenia Minimal degenerative change of the lumbar spine. Reviewed, dictated and finalized at location A.
== END 2020-10-10 16:56 | disposition home or self-care (01) ==
LOC: CHSIMG 16:57
PROVIDERS: PCP Family Medicine; Visit Provider Family Medicine
DX: M54.5 Low back pain (principal); M54.9 Dorsalgia, unspecified
CPT/HCPCS: 72072; 72100

== ENCOUNTER 2020-10-20 09:25 | Outpatient (CLI) | payer OTHER, SELFPAY ==
--- NOTE | ~2020-10-20 | MR_ITS ---
EXAMINATION: MR lumbar spine wo con DATE: 10/20/2020 10:26 INDICATION: L1 burst fracture. TECHNIQUE: Magnetic resonance imaging (MRI) of the lumbar spine was performed without intravenous con trast. Sequences included sagittal T2-weighted FSE, sagittal T2-weighted FS FSE, sagittal T1-weighted FSE, and axial T2-weighted FSE. COMPARISON: Lumbar spine radiograph 10/10/2020 FINDINGS: There is 6 degrees dextrocurvature of lumbar spine. There is a burst fracture of L1 with 1/ 5 loss of height, retropulsion of bone 3 mm into central spinal canal, and bone marrow edema. There i s mildly decreased disc height at L3-L4. The distal spinal cord signal intensity is normal. The conus medullaris is at L1. The following disc levels are specifically discussed: L1-L2: The disc does not extend beyond the endplate margin. There is mild bilateral facet joint osteo arthritis. There is no neural foraminal stenosis. There is no central canal stenosis. L2-L3: The disc is bulging. There is mild bilateral facet joint osteoarthritis. There is mild left ne ural foraminal stenosis. There is mild central canal stenosis. L3-L4: The disc is bulging. There is mild right and moderate left facet joint osteoarthritis. There i s mild bilateral neural foraminal stenosis. There is mild central canal stenosis. L4-L5: The disc is bulging. There is mild bilateral facet joint osteoarthritis. There is mild bilater al neural foraminal stenosis. There is mild central canal stenosis. L5-S1: The disc does not extend beyond the endplate margin. There is mild bilateral facet joint osteo arthritis. There is no neural foraminal stenosis. There is no central canal stenosis. IMPRESSION: 1. Subacute L1 burst fracture, stable from 10/10/2020. 2. Mild lumbar spondylosis. Reviewed, dictated and finalized at location A.
== END 2020-10-20 09:26 | disposition home or self-care (01) ==
PROVIDERS: PCP Family Medicine; Visit Provider Family Medicine
DX: S32.001D Stable burst fracture of unspecified lumbar vertebra, subsequent encounter for fracture with routine healing (principal)
CPT/HCPCS: 72148

== ENCOUNTER 2020-12-10 12:23 | Outpatient (CLI) | payer OTHER, SELFPAY ==
--- NOTE | ~2020-12-10 | DEXA_ITS ---
Bone Density Report Name: Judit Michel Age: 55 Sex: Female Ethnicity: White Date of : 1965 Indication: osteopenia; height loss; asthma or emphysema; Referring Provider: Sherif Shine Study: Bone densitometry was performed. Exam Date: December 10, 2020 Accession number: [id number] Bone Density: Region BMD T-score Z-score Classification AP Spine(L1-L4) 0.931 -1.1 0.2 Osteopenia Femoral Neck (Left) 0.617 -2.1 -0.9 Osteopenia Total Hip (Left) 0.721 -1.8 -1.0 Osteopenia Femoral Neck (Right) 0.596 -2.3 -1.1 Osteopenia Total Hip (Right) 0.727 -1.8 -1.0 Osteopenia Femoral Neck Mean 0.606 -2.2 -1.0 Osteopenia Total Hip Mean 0.724 -1.8 -1.0 Osteopenia World Health Organization criteria for BMD impression classify patients as: Normal (T-score at or above -1.0), Osteopenia (T-score between -1.0 and -2.5), or Osteoporosis (T-score at or below -2.5). 10-year Fracture Risk(1): Major Osteoporotic Fracture 9.0% Hip Fracture 1.3% Reported Risk Factors: [place] (), Neck BMD=0.596, BMI=30.8 (1) FRAX(R) Version 3.08. Fracture probability calculated for an untreated patient. Fracture probability may be lower if the patient has received treatment. Previous Exams: Region Exam Age BMD T-score BMD Change BMD Change Date g/cm2 vs Baseline vs Previous AP Spine (L1-L4) 12/10/2020 55 0.931 -1.1 0.038 (4.3%)# 0.038 (4.3%)# 07/09/2016 51 0.893 -1.4 Total Hip(Left) 12/10/2020 55 0.721 -1.8 0.040 (5.9%)# 0.040 (5.9%)# 07/09/2016 51 0.681 -2.1 *Denotes significance at 95% confidence level, LSC for AP Spine = 0.022 g/cm2, LSC for Total Hip = 0.027 g/cm2 # Denotes dissimilar scan types or analysis methods Clinical Information Provided by Patient: Has the following medical conditions: Asthma or Emphysema Patient maximum height was 66 No regular weight bearing exercise Does not regularly consume dairy products Impression: The patient has low bone mass, based on the Right Femoral Neck T-score. No significant bone loss was observed. Discussion: BONE DENSITY IS LOW AT ONE OR MORE SKELETAL SITES. This patient's lowest T-score is low at one or more skeletal sites. It meets the World Health Organization's (WHO) criteria for ?low bone mass? (T-score between -1.0 and -2.5). The patient's 10-year risk of fracture as calculated by FRAX is less than the threshold where pharmacological therapy is recommended by the National Osteoporosis Foundation (NOF).
== END 2020-12-10 12:24 | disposition home or self-care (01) ==
LOC: CHSIMG 12:25
PROVIDERS: PCP Family Medicine; Visit Provider Family Medicine
DX: S32.001D Stable burst fracture of unspecified lumbar vertebra, subsequent encounter for fracture with routine healing (principal)
CPT/HCPCS: 77080

== ENCOUNTER 2021-04-16 15:06 | Outpatient (CLI) | payer OTHER, SELFPAY ==
--- NOTE | ~2021-04-16 | XR_ITS ---
XR lumbar spine 2-3V DATE: 04/16/2021 15:27 INDICATION: Burst fracture follow-up TECHNIQUE: AP, lateral and coned lateral lumbosacral views of the lumbar spine COMPARISON: 10/10/2020 lumbar spine 10/20/2020 MRI lumbar spine / CT abdomen pelvis, with review of sagittal reconstructions of the lumbar spine FINDINGS: There is diffuse osteopenia. There is chronic L1 burst fracture deformity, relatively stable since 08/17/2020. Normal alignment of the lumbar spine. There is mild multilevel degenerative disc disease. The lumbar pedicles are intact. The sacral iliac joints appear normal. Status post right colon partial resection. IMPRESSION: Stable chronic burst fracture deformity of L1 Mild multilevel degenerative disc disease Diffuse osteopenia Reviewed, dictated and finalized at location B. ER [employer]
== END 2021-04-16 15:07 | disposition home or self-care (01) ==
LOC: CHSIMG 15:09
PROVIDERS: PCP Family Medicine; Visit Provider Family Medicine
DX: S32.001D Stable burst fracture of unspecified lumbar vertebra, subsequent encounter for fracture with routine healing (principal)
CPT/HCPCS: 72100

== ENCOUNTER 2021-04-23 10:49 | Outpatient (CLI) | payer OTHER, SELFPAY ==
--- NOTE | ~2021-04-23 | MR_ITS ---
EXAMINATION: MR lumbar spine wo con DATE: 04/23/2021 12:52 INDICATION: Stable burst fracture of unspecified lumbar vertebra. TECHNIQUE: Magnetic resonance imaging (MRI) of the lumbar spine was performed without intravenous con trast. Sequences included sagittal T2-weighted FSE, sagittal T2-weighted FS FSE, sagittal T1-weighted FSE, and axial T2-weighted FSE. COMPARISON: Lumbar spine MRI 10/20/2020, radiographs 04/16/2021 FINDINGS: There is 6 degrees dextrocurvature of lumbar spine. There is mild chronic anterior wedging of T10-T12 vertebral bodies. There is a chronic burst fracture of superior endplate of L1 with 1/5 lo ss of height and retropulsion of bone 3 mm into central spinal canal. There is mildly decreased disc height at L3-L4 and L4-L5 with endplate remodeling. The distal spinal cord signal intensity is normal . The conus medullaris is at T12-L1. The following disc levels are specifically discussed: L1-L2: The disc does not extend beyond the endplate margin. There is moderate bilateral facet joint o steoarthritis. There is no neural foraminal stenosis. There is no central canal stenosis. L2-L3: There is a left foraminal protrusion. There is moderate bilateral facet joint osteoarthritis. There is mild left neural foraminal stenosis. There is no central canal stenosis. L3-L4: The disc is bulging. There is mild right and moderate left facet joint osteoarthritis. There i s mild bilateral neural foraminal stenosis. There is mild central canal stenosis. L4-L5: The disc is bulging. There is mild bilateral facet joint osteoarthritis. There is mild bilater al neural foraminal stenosis. There is mild central canal stenosis. L5-S1: The disc does not extend beyond the endplate margin. There is moderate bilateral facet joint o steoarthritis. There is no neural foraminal stenosis. There is no central canal stenosis. IMPRESSION: 1. Chronic L1 burst fracture. 2. Mild lumbar spondylosis, stable from 10/20/2020. Reviewed, dictated and finalized at location B. ING MACHINE TENDER
== END 2021-04-23 10:50 | disposition home or self-care (01) ==
LOC: CHSIMG 10:51
PROVIDERS: PCP Family Medicine; Visit Provider Family Medicine
DX: S32.001D Stable burst fracture of unspecified lumbar vertebra, subsequent encounter for fracture with routine healing (principal)
CPT/HCPCS: 72148

== ENCOUNTER 2022-01-27 11:32 | Emergency (ER) | payer OTHER, SELFPAY ==
[2022-01-27 11:44] VITALS: BP 108/90; PULSE 62; RESP 20; TEMP 36.1; O2SAT 97
--- NOTE | 2022-01-27 12:20 | ED.WOUNDLAC ---
HPI - Wound/Laceration General Chief Complaint: Wound/Laceration Stated Complaint: CAR WASH WATER PRESSURE LEFT HAND Time Seen by Provider: 01/27/22 12:16 History of Present Illness HPI narrative: Pt wash washing car at car wash and high pressure water hit her hand causing a skin tear. Pt says last tetanus is 1 year old. Pt denies other injury. Related Data Home Medications Medication Instructions Recorded Confirmed atenolol 50 mg tablet 50 mg PO DAILY 08/13/20 01/27/22 atorvastatin 10 mg tablet 10 mg PO DAILY 08/13/20 01/27/22 beclomethasone dipropionate 80 1 inh inhalation BID 08/13/20 01/27/22 mcg/actuation HFA breath activated aerosol (Qvar RediHaler) dicyclomine 20 mg tablet 20 mg PO PRN PRN Abdominal 08/13/20 01/27/22 Discomfort ipratropium bromide 17 2 puff inhalation QID PRN 08/13/20 01/27/22 mcg/actuation HFA aerosol inhaler Shortness Of Breath Or Wheezing (Atrovent HFA) latanoprost 0.005 % eye drops 1 drp EACH EYE HS 08/13/20 01/27/22 umeclidinium 62.5 mcg/actuation 1 inh inhalation DAILY 08/13/20 01/27/22 blister powder for inhalation (Incruse Ellipta) Allergies Allergy/AdvReac Type Severity Reaction Status Date / Time No Known Allergies Allergy Unverified 01/27/22 11:51 Review of Systems Review of Systems: All systems reviewed & are unremarkable except as noted in HPI and below PMFSH Past Medical History Medical History (Updated 01/27/22 @ 12:34 by Polly Chand III, DO) Back pain COPD (chronic obstructive pulmonary disease) HTN (hypertension) Hyperlipidemia Impaired fasting glucose Surgical History Surgical History (Updated 08/15/20 @ 03:31 by Gelacio Sibley MD) H/O colectomy H/O hernia repair History of cholecystectomy Family History Family History (Updated 08/13/20 @ 07:38 by Chang Clinton MD) Father No problems noted. Father Cerebrovascular accident Mother Obesity CHF (congestive heart failure) Other Diabetes mellitus Social History Social History (Updated 08/15/20 @ 03:32 by Gelacio Sibley MD) Smoking status: Former smoker Smoking end date: 08/01/20 Alcohol intake: former Alcohol use details: rarely Substance use: current Substance use type: marijuana Other substance usage details: 2 weeks Gender identity (if verbalized by the patient): Female Spiritual care concerns: No Exam Const: General: healthy appearing Nutritional Appearance: well nourished Orientation/consciousness: patient oriented x3 Limitations: no limitations Resp: Effort & Inspection: normal respiratory effort Auscultation: clear to auscultation bilaterally Cardio: Rate: regular rate Rhythm: regular rhythm Skin: General skin exam: normal color Wounds: wounds noted Other: skin tear dorsum of left hand Neuro: General: patient oriented x3, moves all extremities, no meningeal signs and no focal motor deficits Cranial nerves: Yes Nystagmus not present Speech: normal speech Gait exam (Neuro): Normal gait present Extrem: General: no clubbing, cyanosis or edema Psych: Mental Status: mental status grossly normal Affect: normal affect Attitude: cooperative Course Vital Signs Vital signs: Vital Signs Temperature 97 F L 01/27/22 11:44 Pulse Rate 62 01/27/22 11:44 Respiratory Rate 20 01/27/22 11:44 Blood Pressure 108/90 01/27/22 11:44 Pulse Oximetry 97 01/27/22 11:44 Oxygen Delivery Room Air 01/27/22 11:44 Temperature 97 F L 01/27/22 11:44 Pulse Rate 62 01/27/22 11:44 Respiratory Rate 20 01/27/22 11:44 Blood Pressure 108/90 01/27/22 11:44 Pulse Oximetry 97 01/27/22 11:44 Oxygen Delivery Room Air 01/27/22 11:44 Discharge Plan Discharge Clinical Impression: Laceration Patient Disposition: Home, Self-Care Condition: Stable Instructions: Antibiotic Form, Laceration (ED), Skin Avulsion (ED) Prescriptions: New hydrocodone-acetaminophen 7.5-325 mg tablet 1 tablet
== END 2022-01-27 12:55 | disposition home or self-care (01) ==
PROVIDERS: Emergency Provider Emergency Medicine; PCP Family Medicine
DX: S61.412A Laceration without foreign body of left hand, initial encounter (principal); W45.8XXA Other foreign body or object entering through skin, initial encounter
CPT/HCPCS: 99283

== ENCOUNTER 2022-03-13 16:22 | Outpatient (CLI) | payer OTHER, SELFPAY ==
--- NOTE | ~2022-03-13 | XR_ITS ---
XR hand LT min 3V DATE: 03/13/2022 17:00 INDICATION: Injury one month ago. Second metacarpal swelling TECHNIQUE: 3 views COMPARISON: No fracture or dislocation FINDINGS: No fracture, dislocation, periosteal reaction or bone destruction. No erosive change or cho ndral calcinosis. Mild osteoarthritic change at some of the interphalangeal joints IMPRESSION: No fracture or dislocation Reviewed, dictated and finalized at location B. E RETURNER IMPRESSION: No fracture or dislocation
[2022-03-13 17:13] LABS: Basophils Absolute Auto 0.06 K/mm3 (0.00-0.10); Basophils Percent Auto 0.5 % (0.0-1.0); Eosinophils Absolute Auto 0.06 K/mm3 (0.02-0.50); Eosinophils Percent Auto 0.5 % (1.0-6.0); Hematocrit 46.1 % (35.0-49.0); Hemoglobin 14.8 g/dL (12.0-15.0); Immature Granulocyte Absolute 0.03 K/mm3 (0.00-0.00); Immature Granulocyte Percent A 0.2 % (0.0-0.0); Lymphocytes Absolute Auto 3.23 K/mm3 (1.10-4.50); Mean Corpuscular HGB Conc 32.1 g/dL (32.0-36.0); Mean Corpuscular Hemoglobin 32.2 pg (27.0-31.0); Mean Corpuscular Volume 100.2 fL (78.0-102.0); Mean Platelet Volume 12.1 fl (9.2-11.8); Monocytes Absolute Auto 1.16 K/mm3 (0.10-0.90); Monocytes Percent Auto 9.3 % (2.0-11.0); Neutrophils Absolute Auto 7.9 K/mm3 (1.7-7.2); Neutrophils Percent Auto 63.5 % (50.0-70.0); Platelet Count Result 239 K/mm3 (150-420); Red Cell Distribution Width 12.9 % (11.6-14.4); White Blood Count 12.4 K/mm3 (4.8-10.8)
[2022-03-13 17:14] LABS: Bilirubin Urine Negative (Negative); Blood Urine Negative (Negative); Glucose Urine UA Negative (Negative); Ketones Urine Negative (Negative); Leukocyte Esterase Ur 2+ (Negative); Nitrate Urine Negative (Negative); Protein Urine Negative (Negative); Specific Grav Ur 1.015 (1.010-1.020); Urobilinogen Urine 0.2 mg/dL (0.2-1.0)
[2022-03-13 17:27] LABS: Add Urine Microscopic? YES; Appearance Urine Cloudy (Clear); Color Urine Light Yellow (Yellow); RBC Urine None seen /hpf (0-2); WBC Urine 16-20 /hpf (0-3)
[2022-03-13 17:28] LABS: Bacteria Urine 1+ /hpf; Squamous Epithelial Cell Urine Few /hpf (Few)
[2022-03-13 17:39] LABS: Creatinine Urine 78.97 mg/dL (40-278); MALB Creatinine Ratio 16.4 mg/g (0-30); Microalbumin Urine Random < 13.0 mg/L
[2022-03-13 17:50] LABS: Alanine Aminotransferase 29 U/L (14-59); Alkaline Phosphatase 89 U/L (46-116); Anion Gap 8 mmol/L (8-16); Aspartate Amino Transferase 20 U/L (15-37); Bilirubin,Total 0.6 mg/dL (0.00-1.00); Blood Urea Nitrogen 23 mg/dL (7-18); Calcium 9.9 mg/dL (8.5-10.1); Carbon Dioxide 30 mmol/L (21-32); Chloride 105 mmol/L (98-108); Estimated Glomerular Filt Rate 58; Glucose 86 mg/dL (70-99); Osmolality Calculated 298 mOsm/kg (285-295); Potassium 4.4 mmol/L (3.5-5.1); Sodium 143 mmol/L (136-145); Total Protein 6.8 g/dL (6.4-8.2)
== END 2022-03-13 16:23 | disposition home or self-care (01) ==
PROVIDERS: PCP Family Medicine; Visit Provider Family Medicine
DX: R22.32 Localized swelling, mass and lump, left upper limb (principal); I10 Essential (primary) hypertension
CPT/HCPCS: 36415; 73130; 80053; 81001; 82043; 84443; 85025

== ENCOUNTER 2022-10-04 06:50 | Outpatient (CLI) | payer OTHER, SELFPAY ==
[2022-10-04 07:03] LABS: Basophils Absolute Auto 0.04 K/mm3 (0.00-0.10); Basophils Percent Auto 0.5 % (0.0-1.0); Eosinophils Absolute Auto 0.12 K/mm3 (0.02-0.50); Eosinophils Percent Auto 1.5 % (1.0-6.0); Hematocrit 45.1 % (35.0-49.0); Hemoglobin 14.1 g/dL (12.0-15.0); Immature Granulocyte Absolute 0.03 K/mm3 (0.00-0.00); Immature Granulocyte Percent A 0.4 % (0.0-0.0); Lymphocytes Absolute Auto 1.79 K/mm3 (1.10-4.50); Lymphocytes Percent Auto 22.1 % (18.0-42.0); Mean Corpuscular HGB Conc 31.3 g/dL (32.0-36.0); Mean Corpuscular Hemoglobin 31.5 pg (27.0-31.0); Mean Corpuscular Volume 100.9 fL (78.0-102.0); Mean Platelet Volume 11.1 fl (9.2-11.8); Monocytes Absolute Auto 0.73 K/mm3 (0.10-0.90); Neutrophils Absolute Auto 5.4 K/mm3 (1.7-7.2); Neutrophils Percent Auto 66.5 % (50.0-70.0); Platelet Count Result 221 K/mm3 (150-420); Red Blood Count 4.47 M/mm3 (4.20-5.40); Red Cell Distribution Width 12.8 % (11.6-14.4); White Blood Count 8.1 K/mm3 (4.8-10.8)
[2022-10-04 07:35] LABS: Anion Gap 5 mmol/L (8-16); Blood Urea Nitrogen 10 mg/dL (7-18); Calcium 9.3 mg/dL (8.5-10.1); Carbon Dioxide 31 mmol/L (21-32); Chloride 110 mmol/L (98-108); Cholesterol 133 mg/dL (0-200); Estimated Glomerular Filt Rate > 60; Glucose 96 mg/dL (70-99); HDL Direct 57 mg/dL (40-60); LDL Cholesterol Calculated 66 mg/dL (<130); Osmolality Calculated 301 mOsm/kg (285-295); Potassium 4.6 mmol/L (3.5-5.1); Sodium 146 mmol/L (136-145); Triglycerides 49 mg/dL (0-150)
== END 2022-10-04 06:51 | disposition home or self-care (01) ==
PROVIDERS: PCP Family Medicine; Visit Provider Family Medicine
DX: I10 Essential (primary) hypertension (principal); E78.2 Mixed hyperlipidemia
CPT/HCPCS: 36415; 80048; 80061; 85025

== ENCOUNTER 2023-03-23 11:36 | Outpatient (CLI) | payer OTHER, SELFPAY ==
[2023-03-23 12:16] LABS: Strep Group A RT-PCR NOT DETECTED (Negative)
[2023-03-23 12:25] LABS: Influenza A QL RT-PCR Negative (Negative); Influenza B QL RT-PCR Negative (Negative); SARS-CoV-2 RNA PCR Negative (Negative)
== END 2023-03-23 11:37 | disposition home or self-care (01) ==
LOC: CHSLAB 11:38
PROVIDERS: PCP Family Medicine; Visit Provider Family Medicine
DX: J06.9 Acute upper respiratory infection, unspecified (principal)
CPT/HCPCS: 87636; 87651

== ENCOUNTER 2023-07-02 07:32 | Outpatient (CLI) | payer OTHER, SELFPAY ==
--- NOTE | ~2023-07-02 | MR_ITS ---
EXAMINATION: MR brain/brain stem wo/w con DATE: 07/02/2023 08:34 INDICATION: Cognitive impairment of uncertain etiology TECHNIQUE: Magnetic resonance imaging (MRI) of the brain and brainstem was performed without and with 17 mL Multihance intravenous contrast. Sequences included sagittal and axial T1-weighted SE, axial d iffusion-weighted FS SE, axial T2*-weighted GRE, axial T2-weighted FLAIR, and axial T2-weighted FSE. Postcontrast axial and coronal T1-weighted SE was obtained. Apparent diffusion coefficient (ADC) maps were created. COMPARISON: None. FINDINGS: There are no areas of restricted diffusion to suggest acute infarction. No intracranial hemorrhage or abnormal intracranial mass lesion. There are scattered areas of nonspecific increased T2-weighted si gnal intensity in the cerebral white matter, predominantly involving the deep and periventricular whi te matter. There are no intraparenchymal signal abnormalities seen on the other pulse sequences. The ventricles are symmetric and normal in size. A normal variant cavum septum pellucidum and vergae. The re are no abnormal extra-axial fluid collections. Flow voids are seen in the cerebral arteries on the T2-weighted sequences consistent with their expected patency. Changes of bilateral intraocular lens replacement. Moderate mucosal thickening and central nonenhancing mucous filling the right sphenoid s inus. Additional mild mucosal thickening the left sphenoid and bilateral ethmoid sinuses. There are n o areas of abnormal enhancement on the post contrast images. IMPRESSION: 1. No acute intracranial process. 2. Mild scattered nonspecific white matter T2 hyperintensity which is within normal limits for age an d likely sequela of chronic small vessel ischemic disease. 3. Right sphenoid sinus disease with mucous filling the sinus which demonstrates peripheral moderate mucosal thickening. Correlate clinically for acute sinusitis. Reviewed, dictated and finalized at location A. WAY ENGINEER IMPRESSION: 1. No acute intracranial process. 2. Mild scattered nonspecific white matter T2 hyperintensity which is within no rmal limits for age and likely sequela of chronic small vessel ischemic disease . 3. Right sphenoid sinus disease with mucous filling the sinus which demonstrate s peripheral moderate mucosal thickening. Correlate clinically for acute sinusi tis.
== END 2023-07-02 07:33 | disposition home or self-care (01) ==
LOC: CHSIMG 07:34
PROVIDERS: PCP Family Medicine; Visit Provider Family Medicine
DX: G31.84 Mild cognitive impairment of uncertain or unknown etiology (principal); J32.3 Chronic sphenoidal sinusitis
CPT/HCPCS: 70553; A9577

== ENCOUNTER 2024-02-09 09:56 | Outpatient (CLI) | payer OTHER, SELFPAY ==
[2024-02-09 10:34] LABS: Strep Group A RT-PCR NOT DETECTED (Negative)
[2024-02-09 10:45] LABS: SARS-CoV-2 RNA PCR Positive (Negative)
[2024-02-09 10:46] LABS: Influenza A QL RT-PCR Negative (Negative); Influenza B QL RT-PCR Negative (Negative)
== END 2024-02-09 09:57 | disposition home or self-care (01) ==
PROVIDERS: PCP Family Medicine; Visit Provider Family Medicine
DX: J01.90 Acute sinusitis, unspecified (principal)
CPT/HCPCS: 87636; 87651

== ENCOUNTER 2024-02-29 07:31 | Outpatient (CLI) | payer OTHER, SELFPAY ==
[2024-02-29 07:56] LABS: Basophils Absolute Auto 0.06 K/mm3 (0.00-0.10); Basophils Percent Auto 0.5 % (0.0-1.0); Eosinophils Absolute Auto 0.11 K/mm3 (0.02-0.50); Eosinophils Percent Auto 0.9 % (1.0-6.0); Hematocrit 46.2 % (35.0-49.0); Hemoglobin 14.9 g/dL (12.0-15.0); Immature Granulocyte Absolute 0.05 K/mm3 (0.00-0.00); Immature Granulocyte Percent A 0.4 % (0.0-0.0); Lymphocytes Absolute Auto 2.28 K/mm3 (1.10-4.50); Lymphocytes Percent Auto 19.7 % (18.0-42.0); Mean Corpuscular HGB Conc 32.3 g/dL (32-36); Mean Corpuscular Hemoglobin 31.6 pg (27.0-31.0); Mean Corpuscular Volume 98.1 fL (78.0-102.0); Mean Platelet Volume 10.6 fl (9.2-11.8); Monocytes Absolute Auto 0.86 K/mm3 (0.10-0.90); Monocytes Percent Auto 7.4 % (2.0-11.0); Neutrophils Absolute Auto 8.22 K/mm3 (1.70-7.20); Neutrophils Percent Auto 71.1 % (50.0-70.0); Platelet Count Result 302 K/mm3 (150-420); Red Blood Count 4.71 M/mm3 (4.20-5.40); Red Cell Distribution Width 13.2 % (11.6-14.4); White Blood Count 11.6 K/mm3 (4.8-10.8)
[2024-02-29 08:13] LABS: Creatinine Urine 205.11 mg/dL (40-278); MALB Creatinine Ratio 29.8 mg/g (0-30); Microalbumin Urine Random 61.3 mg/L
[2024-02-29 08:43] LABS: Alanine Aminotransferase 18 U/L (14-59); Albumin Level 3.4 g/dL (3.4-5.0); Alkaline Phosphatase 82 U/L (46-116); Anion Gap 7 mmol/L (4-12); Aspartate Amino Transferase < 10 U/L (15-37); Bilirubin,Total 0.6 mg/dL (0.00-1.00); Blood Urea Nitrogen 11 mg/dL (7-18); Calcium 9.8 mg/dL (8.5-10.1); Carbon Dioxide 30 mmol/L (21-32); Chloride 107 mmol/L (98-108); Cholesterol 170 mg/dL (0-200); Estimated Glomerular Filt Rate 59; Glucose 103 mg/dL (70-99); HDL Direct 73 mg/dL (40-60); LDL Cholesterol Calculated 81 mg/dL (<130); Osmolality Calculated 297 mOsm/kg (285-295); Potassium 4.2 mmol/L (3.5-5.1); Sodium 144 mmol/L (136-145); Thyroid Stimulating Hormone 2.09 uIU/mL (0.36-3.74); Total Protein 6.6 g/dL (6.4-8.2); Triglycerides 79 mg/dL (0-150)
== END 2024-02-29 07:32 | disposition home or self-care (01) ==
PROVIDERS: PCP Family Medicine; Visit Provider Family Medicine
DX: I10 Essential (primary) hypertension (principal); E78.2 Mixed hyperlipidemia
CPT/HCPCS: 36415; 80053; 80061; 82043; 84443; 85025

== ENCOUNTER 2024-03-16 09:06 | Outpatient (CLI) | payer OTHER, SELFPAY ==
[2024-03-16 09:56] LABS: Anion Gap 5 mmol/L (4-12); Blood Urea Nitrogen 13 mg/dL (7-18); Calcium 10.2 mg/dL (8.5-10.1); Carbon Dioxide 35 mmol/L (21-32); Chloride 102 mmol/L (98-108); Estimated Glomerular Filt Rate 59; Glucose 104 mg/dL (70-99); Osmolality Calculated 294 mOsm/kg (285-295); Potassium 4.3 mmol/L (3.5-5.1); Sodium 142 mmol/L (136-145)
== END 2024-03-16 09:07 | disposition home or self-care (01) ==
PROVIDERS: PCP Family Medicine; Visit Provider Family Medicine
DX: I10 Essential (primary) hypertension (principal)
CPT/HCPCS: 36415; 80048

== ENCOUNTER 2024-04-18 07:42 | Outpatient (CLI) | payer OTHER, SELFPAY ==
[2024-04-18 08:26] LABS: Anion Gap 7 mmol/L (4-12); Blood Urea Nitrogen 14 mg/dL (7-18); Calcium 9.6 mg/dL (8.5-10.1); Carbon Dioxide 33 mmol/L (21-32); Chloride 102 mmol/L (98-108); Estimated Glomerular Filt Rate > 60; Glucose 101 mg/dL (70-99); Osmolality Calculated 294 mOsm/kg (285-295); Potassium 3.8 mmol/L (3.5-5.1); Sodium 142 mmol/L (136-145)
--- OUTSIDE RECORDS SUMMARY | 2024-04-25 09:26 | XMS_ITS | Encounter Summary ---
Author Organization [facility] Address [address] [place] [address]. [place], [place] [id number] [place] [address] Care Team Providers Care Web Knitter Name Role Phone Unavailable Primary Care Provider Unavailabl e Encounter Details Date Type Department Care Team (Late st Contact Info) Description 10/02/2018 Abstract [facility] [address] [place] [address] , Generic Conversion, Social History Tobacco Use Types Packs/Day Years Used Date Smoking Tobacco: Never Assessed Comments Unknown Sex and Gender Information Value Date Recorded Sex Assigned at Not on file Legal Sex Female 8:06 AM CDT Gender Identity Not on file Sexual Orientation Not on file documented as of this encounter Plan of Treatment Not on file documented as of this encounter Visit Diagnoses Not on filedocumented in this encounter
--- OUTSIDE RECORDS SUMMARY | 2024-04-25 09:26 | XMS_ITS | Clinical Summary ---
Author Organization [facility] Address [address] [place] [address]. [place], [place] [address] [place] [address] Care Team Providers Care Baster Hand Name Role Phone Unavailable Primary Care Provider Unavailabl e Social History Tobacco Use Types Packs/Day Years Used Date Smoking Tobacco: Never Assessed Comments Unknown Sex and Gender Information Value Date Recorded Sex Assigned at Not on file Legal Sex Female 8:06 AM CDT Gender Identity Not on file Sexual Orientation Not on file Plan of Treatment Health Maintenance Due Date Last Done Comments Cervical Cancer Screening Pa p Smear (Age 30 to 64) Every 3 Years 1963 Colorectal Cancer Screening Colonoscopy (10 Years) 1963 Annual Physical 1966 Hepatitis C 1981 DTaP, Tdap and Td Vaccines ( 1 - Tdap) 1982 Cervical Cancer Screening Pa p with HPV Testing (Age 30 to 64) Every 5 Years 1993 Cervical Cancer Screening with HPV 1993 Mammogram Screening 2003 Zoster Vaccines (1 of 2) 2013 COVID-19 Vaccine (2023-2 5 season) 2023 Influenza Adult (#1) 2024 RSV Immunization or 60+ Years (1 - 1-dose 75+ series) 2038 Meningococcal Vaccine Aged Out No akilah mike eligible based on patient's age to complete this topic Pneumococcal Vaccine: Pediat rics (0 to 5 Years) and At-Risk Patients (6 to 64 Years) Aged Out No longer eligible b ased on patient's age to complete this topic RSV Immunizations Under 20 Months Aged Out No longer eligible based on patient's age to complete this topic
--- OUTSIDE RECORDS SUMMARY | 2024-04-25 09:26 | XMS_ITS | Encounter Summary ---
Author Organization [facility] Address [address] [place] [address]. [place] [address] [place] [address] Care Team Providers Care Teller Supervisor Name Role Phone Unavailable Primary Care Provider Unavailabl e Encounter Details Date Type Department Care Team (Late st Contact Info) Description 03/11/[address] [facility] [address] [facility] [place] [address] Sherif Shine MD [address] [place] [address] Social History Tobacco Use Types Packs/Day Years Used Date Smoking Tobacco: Never Assessed Comments Unknown Sex and Gender Information Value Date Recorded Sex Assigned at Not on file Legal Sex Female 8:06 AM CDT Gender Identity Not on file Sexual Orientation Not on file documented as of this encounter Plan of Treatment Not on file documented as of this encounter Visit Diagnoses Diagnosis Other pneumonia, unspecified organism documented in this encounter
--- OUTSIDE RECORDS SUMMARY | 2024-04-25 09:26 | XMS_ITS | Encounter Summary ---
Author Organization [facility] Address [address] [place] [address]. [place] [address] [place] [address] Care Team Providers Care Career Technical Supervisor Name Role Phone Unavailable Primary Care Provider Unavailabl e Encounter Details Date Type Department Care Team (Late st Contact Info) Description 03/21/2018 Abstract [facility] [address] [facility] [place] [address] Gelacio Dallas MD [address] [place] [address] Social History Tobacco Use Types Packs/Day Years Used Date Smoking Tobacco: Never Assessed Comments Unknown Sex and Gender Information Value Date Recorded Sex Assigned at Not on file Legal Sex Female 8:06 AM CDT Gender Identity Not on file Sexual Orientation Not on file documented as of this encounter Plan of Treatment Not on file documented as of this encounter Visit Diagnoses Diagnosis Umbilical hernia without obstruction or gangrene Umbilical hernia without mention of obstruction or gangrene documented in this encounter
--- OUTSIDE RECORDS SUMMARY | 2024-04-25 09:30 | XMS_ITS | Clinical Summary ---
Author Organization [facility] Address [address], [facility] [address] [place] [address] Phone Care Team Providers Care Weed Control Inspector Name Role Phone Sherif Shine MD Primary Care Provider Allergies No known active allergies Medications latanoprost 0.005 % OP SOLN Place 1 Drop in affected eye(s) daily. Active atenolol 50 MG PO TABS Take 50 mg by mouth daily. Active albuterol (PROVENTIL HFA, VENTOLIN HFA) 108 (90 BASE) MCG/ACT Aerosol Solution take 1 Puff by inhalation every 4 hours as needed for Wheezing. Active acetaminophen (TYLENOL) 500 MG Tablet Take 500 mg by mouth every 4 hours as needed for Pain. 2 TABS Active famotidine (PEPCID) 20 MG Tablet Take 1 Tab by mouth every evening. 30 Tab 3 6 Active FLOVENT HFA 220 MCG/ACT Aerosol 8 Active dicyclomine (BENTYL) 20 MG TabletIndicatio ns:Irritable Bowel Syndrome Take 20 mg by mouth every 6 hours as needed. Active pregabalin (LYRICA) 150 MG Capsule Take 150 mg by mouth 2 times daily. Active HYDROcodone-tay taminophen (NORCO) 5-325 MG Tablet Take 1-2 Tabs by mouth every 4 hours as needed for Mild or more severe pain. 15 Tab 9 Active Active Problems Problem Noted Date Diagnosed Date Bilious vomiting with nausea 04/28/2018 Generalized abdominal pain 04/28/2018 Recurrent incisional hernia with incarceration 0 10/23/2017 Omental mass 10/23/2017 Anxiety state Chronic obstructive pulmonary disease Depression Fibromyalgia Glaucoma Systemic hypertension Esophageal reflux Family History Medical History Relation Name Comments Diabetes Father Congestive Heart Failure Mother Relation Name Status Comments Father Mother Social History Tobacco Use Types Packs/Day Years Used Date Smoking Tobacco: Light Smoker Cigarettes Smokeless Tobacco: Never Tobacco Cessation:Counseling Given: No Alcohol Use Standard Drinks/Week Comments Yes 0 (1 standard drink = 0.6 oz pur e alcohol) rarely Sexually Active Control Partners Comments Never Comments No Sex and Gender Information Value Date Recorded Sex Assigned at Not on file Legal Sex Female 12:02 AM CDT Gender Identity Not on file Sexual Orientation Not on file Last Filed Vital Signs Vital Sign Reading Time Taken Comments Blood Pressure 110/60 05/24/2018 1:00 PM ICHTHYOLOGY TEACHER Pulse 54 05/24/2018 1:00 PM ICHTHYOLOGY TEACHER Temperature 36.5 ??C (97.7 ??F) 05/24/2018 1:00 PM CS T Respiratory Rate 16 05/24/2018 1:00 PM ICHTHYOLOGY TEACHER Oxygen Saturation 92% 05/24/2018 1:00 PM ICHTHYOLOGY TEACHER Inhaled Oxygen Concentration - - Weight 81.6 kg (180 lb) 05/18/2018 11:00 AM ICHTHYOLOGY TEACHER Height 167.6 cm (5' 6 ) 05/24/2018 9:00 AM ICHTHYOLOGY TEACHER Body Mass Index 29.05 05/18/2018 11:00 AM ICHTHYOLOGY TEACHER Plan of Treatment Health Maintenance Due Date Last Done Comments Hepatitis C Virus (HCV) Screening 1963 TdaP Immunization 1963 Pap Smear 1984 Cervical Cancer Screening (CCS) 1993 HPV/Cotest 1993 Cologuard 2013 Immunochemical Fecal Occult Blood 2013 Mammogram 2013 Zoster Immunization (1 of 2) 2013 Pneumococcal Immunization (5 0+ years) (2 of 2 - PCV) 01/25/2015 01/25/2014 Respiratory Syncytial Virus (RSV) Immunization (Adult) (1 - Risk 60-74 years 1-dose series) 2023 Colonoscopy 11/24/2023 11/23/2013 Colorectal Cancer Screening 11/24/2023 Influenza Immunization (#1) 2023 01/25/2014 SARS-COV-2 Immunization ( season) 2023 04/18/2021, 10/17/2020, 09/26/2020 11/23/2013 Pneumococcal Immunization Combined Discontinued 01/25/2014 Hepatitis B Immunization Aged Out No longer eligible based on patient's age to complete this topic Meningococcal Immunization (ACWY) Aged Out No longer eligible based on patient's age to complete this topic Rotavirus Immunization Aged Out No lo nger eligible based on patient's age to complete this topic Medical Devices Implanted Type Area Tester Food Products Device Identifier Shelf Expiration Date Model / Serial / Lot Mesh Srg Ventralight St Sepra Echo Ps 6in Mfl Ltwt Abs Loprfl Strl Seprafilm Polyp Hydrogel [place] [employer] [place] - [id number] Implanted:Qty: 1 on 10/26/2017 by Khari Vazquez MD at [facility] IMPLANT N/A: Abdomen [employer] 05/24/2019 [id number] / [id number] / [id number] Patch Srg Mfl Self Expand Strap Pocket Ventralex Sepra Sorbaflex Polyp Eptfe Med [place] [employer] [place] 2.5in Strl - [id number] Implanted:Qty: 1 on 05/24/2018 by Khari Vazquez MD at [facility] IMPLANT N/A: Abdomen [employer] 06/24/2019 [id number] / [id number] / [id number] Procedures Procedure Name Priority Date/Time Associated Diagnosis Comments COLONOSCOPY Routine 11/23/2013 from Last 3 Months or Most Recently Relevant to Health Maintenance Results * HM COLONOSCOPY (11/23/2013) Glen Cheung MD PROCEDURE/MINOR SURGICAL ORDERAB LES Final Result from Last 3 Months or Most Recently Relevant to Health Maintenance Insurance MEDICAID [employer] [facility] Care Teams Weed Control Inspector Relationship Specialty Start Date End Date Shreif Shine MD [address] [place] [address] PCP - General Pediatrics 10/01/17
== END 2024-04-18 07:43 | disposition home or self-care (01) ==
LOC: CHSLAB 07:43
PROVIDERS: PCP Family Medicine; Visit Provider Family Medicine
DX: E83.52 Hypercalcemia (principal)
CPT/HCPCS: 36415; 80048

== ENCOUNTER 2024-05-17 11:49 | Outpatient (CLI) | payer OTHER, SELFPAY ==
--- NOTE | ~2024-05-17 | XR_ITS ---
AP and lateral views of the left hip Clinical history: Pain Findings: No acute fracture or dislocation is seen. Osseous alignment is anatomic. Left hip joint is intact. Soft tissues are unremarkable. Impression: No significant abnormality is seen. Reviewed, dictated and finalized at location M. FACTURING TEAM MEMBER Impression: No significant abnormality is seen.
--- NOTE | ~2024-05-17 | XR_ITS ---
Cervical Spine: AP, lateral, oblique, open-mouth views Clinical History: Pain Findings: The normal lordotic curve is maintained. The vertebral bodies and posterior elements appea r intact. The intervertebral disc spaces are well maintained. Mild facet arthropathy present through out cervical spine. Pre-vertebral soft tissues are unremarkable. Impression: Mild facet arthropathy. Reviewed, dictated and finalized at [facility]. GEMENT TECHNICIAN Impression: Mild facet arthropathy.
--- NOTE | ~2024-05-17 | XR_ITS ---
HISTORY: LT SIDE CP S/P FALL X1WK AGO,CRACKLING WITH DEEP BREATH COMPARISON: None TECHNIQUE: 3 views of the left ribs were performed along with a PA and lateral of the chest FINDINGS: No acute displaced fracture is appreciated. Possible nondisplaced subacute fracture involving the left posterior 12th rib. A left-sided pleural effusion is identified. The remainder of the left hemithorax is unremarkable. Bone mineralization is age-appropriate. The cardiomediastinal silhouette is unremarkable. The remainder of the lungs are clear. IMPRESSION: Possible nondisplaced subacute fracture involving the left posterior T12 rib, as detaile d above. Associated left-sided pleural effusion (possibly blood products) is also noted. Reviewed, dictated and finalized at location A. STICS ENGINEERING MANAGER IMPRESSION: Possible nondisplaced subacute fracture involving the left posteri or T12 rib, as detailed above. Associated left-sided pleural effusion (possibly blood products) is also noted.
--- NOTE | ~2024-05-17 | XR_ITS ---
HISTORY: FALL X1WK AGO,LT SIDE BACK PAIN INTO LT HIP COMPARISON: 04/16/2021 TECHNIQUE: 2 view lumbar spine. FINDINGS: Lumbar vertebral bodies are normally aligned. There are 5 non-rib bearing lumbar vertebral bodies. Compression of the superior endplate of L1 is identified, unchanged from 2020. There are no lytic or sclerotic lesions. Paraspinal soft tissues are unremarkable IMPRESSION: No acute or subacute lumbar spine fracture, as detailed above. Prior injury at the level of L1. Reviewed, dictated and finalized at location A. OLL TAX ANALYST
--- NOTE | ~2024-05-17 | XR_ITS ---
Left Shoulder Technique: AP and scapular Y views were obtained. Clinical History: Pain Findings: No fracture or dislocation is seen. Osseous alignment is anatomic. The glenohumeral and acr omioclavicular joint spaces are preserved. Soft tissues are unremarkable. Impression: Unremarkable left shoulder radiographs. Reviewed, dictated and finalized at [facility]. BACKER Impression: Unremarkable left shoulder radiographs.
--- NOTE | ~2024-05-17 | XR_ITS ---
Thoracic spine: Clinical Indication: Back pain AP and lateral views were performed. There is mild compression. T10, age-indeterminate. There is moderate to advanced degenerative disc ch gregoria throughout the thoracic spine with narrowing and relative kyphosis. Paravertebral soft tissues a ppear normal. Impression: Age indeterminate mild T10 compression fracture. Moderate to advanced degenerative spondylosis, with kyphosis. Reviewed, dictated and finalized at [facility]. VERY DIRECTOR Impression: Age indeterminate mild T10 compression fracture. Moderate to advanced degenerative spondylosis, with kyphosis.
== END 2024-05-17 11:50 | disposition home or self-care (01) ==
PROVIDERS: PCP Family Medicine; Visit Provider Family Medicine
DX: R07.89 Other chest pain (principal); M25.552 Pain in left hip; M25.512 Pain in left shoulder; M12.88 Other specific arthropathies, not elsewhere classified, other specified site; M48.54XA Collapsed vertebra, not elsewhere classified, thoracic region, initial encounter for fracture; M43.04 Spondylolysis, thoracic region; M40.204 Unspecified kyphosis, thoracic region; J90 Pleural effusion, not elsewhere classified
CPT/HCPCS: 71046; 71110; 72050; 72072; 72100; 73030; 73502

== ENCOUNTER 2024-07-25 10:42 | Outpatient (CLI) | payer OTHER, SELFPAY ==
--- NOTE | ~2024-07-25 | XR_ITS ---
EXAMINATION: XR thoracic spine 3V DATE: 07/25/2024 11:14 INDICATION: Low back pain. Fall. TECHNIQUE: 3 views of the thoracic spine were obtained. COMPARISON: Thoracic spine radiographs 05/17/2024 FINDINGS: There is kyphosis of thoracic spine. There is 13 degrees dextroscoliosis of thoracic spine. There is mild chronic anterior wedging of T4-T12 vertebral bodies. There is a chronic compression fr acture of L1 with 1/5 loss of height. There is decreased disc height at many levels, moderate from T4 -T5 through T9-T10. There are surgical clips in right abdomen. IMPRESSION: 1. Moderate thoracic spondylosis. 2. Thoracic kyphosis and dextroscoliosis. Reviewed, dictated and finalized at location A.
--- NOTE | ~2024-07-25 | XR_ITS ---
XR chest 2V 07/25/2024 11:13 Indication: Acute cough. COPD. Procedure: 2 view chest Comparison: 05/18/2024 Findings: Left basilar atelectasis/scarring unchanged. Heart size normal. Right lung clear. No signif icant effusion, edema or pneumothorax. There are cholecystectomy clips. There is an L1 superior endpl ate compression fracture, likely chronic. Accentuated kyphosis. Impression: 1: Stable left basilar atelectasis/scarring. Reviewed, dictated and finalized at location A. Impression: 1: Stable left basilar atelectasis/scarring.
--- NOTE | ~2024-07-25 | XR_ITS ---
Lumbosacral Spine: AP and lateral views Clinical History: Pain Findings: The normal lordotic curve is maintained. Probable mild L1 compression deformity. Interverte bral disc spaces demonstrate minimal degenerative change. There is moderate facet arthropathy through out the lumbar spine. The sacroiliac joints are normally outlined. Impression: Probable minimal L1 compression deformity, age-indeterminate. Qgzl-rv-ygsywzcv degenerative spondylosis. Reviewed, dictated and finalized at location . Impression: Probable minimal L1 compression deformity, age-indeterminate. Ftza-ul-jzdqmjer degenerative spondylosis.
--- OUTSIDE RECORDS SUMMARY | 2024-07-25 12:06 | XMS_ITS | Clinical Summary ---
Author Organization [facility] Address [address] [place] [address] Care Team Providers Care Insole And Outsole Preparer Name Role Phone Provider, Abstract Primary Care Provider Unavail able Allergies No known active allergies Medications acetaminophen (TYLENOL) 500 mg tablet Take 500 mg by mouth. Active albuterol HFA 90 mcg inhaler Take 1 Puff by inhalation. Active atenoloL (TENORMIN) 50 mg tablet Take 50 mg by mouth. Active dicyclomine (BENTYL) 20 mg tablet Take 20 mg by mouth. Active HYDROcodone-tay taminophen (NORCO) 5-325 mg tablet Take 1-2 Tablets by mouth. 9 Active latanoprost (XALATAN) 0.005 % solution 1 Drop by Ophthalmic route. Active umeclidinium (Incruse Ellipta) 62.5 mcg/actuation Disk with Device Take by inhalation. Active Active Problems Problem Noted Date Diagnosed Date Leukocytosis (leucocytosis) 09/19/2020 Family History Relation Name Status Comments Brother Alive Daughter Alive Father Mother Sister Alive Son 1 Alive Son 2 Alive Social History Tobacco Use Types Packs/Day Years Used Date Smoking Tobacco: Former Cigarettes 2 35 Smokeless Tobacco: Never Comments:quit in July 2020 Alcohol Use Standard Drinks/Week Comments Yes 0 (1 standard drink = 0.6 oz pur e alcohol) Comments Unknown Sex and Gender Information Value Date Recorded Sex Assigned at Not on file Legal Sex Female 1:30 PM CDT Gender Identity Not on file Sexual Orientation Not on file Last Filed Vital Signs Vital Sign Reading Time Taken Comments Blood Pressure 127/94 09/19/2020 11:00 AM CDT Pulse 71 09/19/2020 11:00 AM CDT Temperature 36.4 C (97.6 F) 09/19/2020 11:00 AM CDT Respiratory Rate - - Oxygen Saturation 96% 09/19/2020 11:00 AM CDT Inhaled Oxygen Concentration - - Weight 84 kg (185 lb 1.6 oz) 09/19/2020 11:00 AM CDT Height 167.6 cm (5' 6 ) 09/19/2020 11:00 AM CDT Body Mass Index 29.88 09/19/2020 11:00 AM CDT Plan of Treatment Health Maintenance Due Date Last Done Comments PNEUMOCOCCAL VACCINE 0-49 YE ARS (1 of 2 - PCV) 1969 DTAP/TDAP/TD VACCINES (1 - Tdap) 1982 HPV/Cotest (21-29) 1984 PAP SMEAR 1984 CERVICAL CANCER SCREENING 1993 HPV/Cotest (30-65) 1993 PAP SMEAR 1993 BREAST CANCER SCREENING 2003 COLORECTAL SCREENING 2008 Colorectal Cancer Screening 2008 FIT-DNA Q 3 years 2008 FIT/FOBT Q 1 year 2008 Flex Sig/CT Colonography Q 5 years 2008 ZOSTER VACCINE (1 of 2) 2013 RSV VACCINE (60+ or ) (1 - Risk 60-74 years 1-dose series) 2023 INFLUENZA VACCINE (#1) 2023 HEPATITIS B VACCINES Aged Out No long er eligible based on patient's age to complete this topic [place] [address] [place] [address] PLAN MEDICAID Care Teams Insole And Outsole Preparer Relationship Specialty Start Date End Date Provider, Abstract NO ADDRESS ON FILE PCP - General 09/19/20
--- OUTSIDE RECORDS SUMMARY | 2024-07-25 12:06 | XMS_ITS | Encounter Summary ---
Author Organization [facility] Address [address] [place] [address] Care Team Providers Care Shoe Repairer Name Role Phone Unavailable Primary Care Provider Unavailabl e Encounter Details Date Type Department Care Team (Late st Contact Info) Description 10/02/2018 Abstract [facility] CONVERSION [address] [place] [address] , Generic Conversion, Social History Tobacco Use [...]
--- OUTSIDE RECORDS SUMMARY | 2024-07-25 12:06 | XMS_ITS | Clinical Summary ---
Author Organization [facility] Address [facility] [place] [address] Care Team Providers Care Metal Mold Dresser Name Role Phone Unavailable Primary Care Provider [...] 2013 COVID-19 Vaccine (2023-2 5 season) 2023 RSV Immunization or 60+ Years (1 - 1-dose 75+ series) 2038 Meningococcal B Vaccine Aged Out No l onger eligible based on patient's age to complete this topic Meningococcal Vaccine Aged Out No akliah mike eligible based on patient's age to [...]
--- OUTSIDE RECORDS SUMMARY | 2024-07-25 12:06 | XMS_ITS | Clinical Summary ---
Author Organization [facility] Address [address], [facility] [address] [place] [address] Phone Care Team Providers Care Call Center Nurse Name Role Phone Sherif Shine MD Primary [...] Comments Blood Pressure 110/60 05/24/2018 1:00 PM COUNTY LIBRARY DIRECTOR Pulse 54 05/24/2018 1:00 PM COUNTY LIBRARY DIRECTOR Temperature 36.5 C (97.7 F) 05/24/2018 1:00 PM COUNTY LIBRARY DIRECTOR Respiratory Rate 16 05/24/2018 1:00 PM COUNTY LIBRARY DIRECTOR Oxygen Saturation 92% 05/24/2018 1:00 PM COUNTY LIBRARY DIRECTOR Inhaled Oxygen Concentration - - Weight 81.6 kg (180 lb) 05/18/2018 11:00 AM COUNTY LIBRARY DIRECTOR Height 167.6 cm (5' 6 ) 05/24/2018 9:00 AM COUNTY LIBRARY DIRECTOR Body Mass Index 29.05 05/18/2018 11:00 AM COUNTY LIBRARY DIRECTOR Plan of Treatment Health Maintenance Due Date Last Done Comments Hepatitis C Virus (HCV) Screening 1963 TdaP Immunization 1963 Cologuard 2013 Immunochemical Fecal Occult Blood 2013 Zoster Immunization (1 of 2) 2013 [...] this topic Medical Devices Implanted Type Area Superannuation Funds Manager Device Identifier Shelf Expiration Date Model / Serial / Lot Mesh Srg Ventralight St Sepra Echo Ps 6in Mfl Ltwt Abs Loprfl Strl Seprafilm Polyp Hydrogel [place] - [id number] Implanted:Qty: 1 on 10/26/2017 by Khari Vazquez MD at [facility] IMPLANT N/A: Abdomen [employer] 05/24/2019 [id number] / [id number] / [id number] Patch Srg Mfl Self Expand Strap Pocket Ventralex Sepra Sorbaflex Polyp Eptfe Med [place] 2.5in Strl - [id number] Implanted:Qty: 1 on 05/24/2018 by Khari Vazquez MD at [facility] IMPLANT N/A: Abdomen [employer] 06/24/2019 [id number] / [id number] / [id number] Procedures Procedure Name Priority Date/Time Associated Diagnosis Comments COLONOSCOPY Routine 11/23/2013 from Last 3 Months or Most Recently Relevant to Health Maintenance Results * COLONOSCOPY (11/23/2013) Glen Cheung MD PROCEDURE/MINOR SURGICAL ORDERAB LES Final Result from Last 3 Months or Most Recently Relevant to Health Maintenance [facility] Care Teams Call Center Nurse Relationship Specialty Start Date End Date Sherif Shine MD [address] [phone] PCP - General Pediatrics 10/01/17
== END 2024-07-25 10:43 | disposition home or self-care (01) ==
LOC: CHSIMG 10:44
PROVIDERS: PCP Family Medicine; Visit Provider Family Medicine
DX: R05.1 Acute cough (principal); M54.50 Low back pain, unspecified; S22.079D Unspecified fracture of T9-T10 vertebra, subsequent encounter for fracture with routine healing; M43.04 Spondylolysis, thoracic region; M41.84 Other forms of scoliosis, thoracic region; M43.06 Spondylolysis, lumbar region; R91.8 Other nonspecific abnormal finding of lung field
CPT/HCPCS: 71046; 72072; 72100

== ENCOUNTER 2024-07-28 09:20 | Outpatient (RCR) | payer OTHER, SELFPAY ==
--- NOTE | 2024-07-28 10:00 | OPREHPOC ---
Outpatient Therapy Plan of Care This is a Multidisciplinary Plan of Care that may contain components documented by all disciplines (PT, OT, and ST.) PT Problem 1 PT Problem #1 Knowledge Deficit PT Goal 1 Goal / Goal Update Independent and compliant with HEP. Target Visit 2 PT Problem 2 PT Problem #2 Pain PT Goal 1 Goal / Goal Update Pt to report no more than 3/10 pain at rest. Pt to report no more than 6/10 pain with activity. Target Visit 10 PT Problem 3 PT Problem #3 Impaired Strength PT Goal 1 Goal / Goal Update Pt to improve lower abdominal strength to 4+/5. Pt to improve bilateral hip flexion strength to 5/ 5 without pain. Target Visit 10 PT Problem 4 PT Problem #4 Impaired Range of Motion PT Goal 1 Goal / Goal Update Pt to improve active lumbar flexion ROM to mid couch. Pt to improve active lumbar extension ROM 15 degrees. Target Visit 10 PT Problem 5 PT Problem #5 Impaired Functional Mobility PT Goal 1 Goal / Goal Update Pt to be able to get in/out of bed without back pain. Pt to report 20% reduction in disability on back index. Target Visit 10
--- NOTE | 2024-07-28 10:00 | PTOPEVAL1 ---
Assessment and note entered by Eileen Alvarez, PT Evaluation Information Assessment Status Evaluation ICD-10 Condition Codes (PT) Pain in low back M54.50 Onset 05/10/24 Subjective Information Pt reports she fell on May 10 and got a compression fracture in her middle back and also broke some ribs. She also had a fall over 3 years ago that caused a compression fracture in her low back. Since her fall in April she notes she can' t bend over and lift objects. She notes increased pain with these movements as well as with prolonged standing/sitting. All she can do to get relief is to lie on her back. She's also been using a heat pack at night for pain relief. She occasional feels like her back will give out and also occasionally has N/T. Reported Pain Level Pain Score 6: Self Report Assessment PT Clinical Summary Mrs. Michel is a 59 yo female who enters the clinic with complaints of low back pain. She demonstrates abdominal and proximal lower extremity weakness as well as pain with active lumbar ROM. Her pain interferes with her ability to bend forward to picking belt operator objects, get in and out of bed and the car and take care of her granddaughter. She will benefit from skilled physical therapy intervention to improve on these deficits to be able to perform functional tasks with less pain. Plan of Care Interventions Electrical Stimulation,Gait Training,Hot Pack/Cold Pack,Manual Therapy,Mechanical Traction,Neuro Re- education,Patient/Caregiver Education,Therapeutic Activities,Therapeutic Exercise,Self-Care/Home Management PT Services Indicated Yes Treatment Frequency and 2x/week for 10 visits Duration These treatments will address the objective and functional deficits as defined above. The patient will be advanced safely and appropriately in order for the patient to progress towards his/her prior level of function. Additional exercises will be introduced and as well as a comprehensive home exercise program upon discharge, if needed, ?to ensure carryover of functional gains achieved in the clinic. This treatment plan has been reviewed and agreement upon by the patient.
--- NOTE | 2024-10-24 16:58 | PTOPDC ---
Assessment and note entered by Eileen Alvarez, PT Evaluation Information Assessment Status Discharge - Pt Not Present ICD-10 Condition Codes (PT) Pain in low back M54.50 Onset 05/10/24 Subjective Information Mrs. Michel attended skilled PT evaluation and one treatment session addressing back pain due to compression fracture after a fall. Pt has not attended PT since 08/02/24 and her original PT order and authorization are , so we will discharge her from PT this date. Assessment PT Clinical Summary Mrs. Michel attended skilled PT evaluation and one treatment session addressing back pain due to compression fracture after a fall. Pt has not attended PT since 08/02/24 and her original PT order and authorization are , so we will discharge her from PT this date. Plan of Care PT Services Indicated No
== END 2024-08-02 20:00 | disposition home or self-care (01) ==
LOC: CHSPT 09:20
PROVIDERS: PCP Family Medicine; Visit Provider Family Medicine
DX: M54.50 Low back pain, unspecified (principal); S22.079D Unspecified fracture of T9-T10 vertebra, subsequent encounter for fracture with routine healing; S32.001D Stable burst fracture of unspecified lumbar vertebra, subsequent encounter for fracture with routine healing
CPT/HCPCS: 97014; 97110; 97161; G0283

== ENCOUNTER 2024-09-17 09:10 | Outpatient (CLI) | payer OTHER, SELFPAY ==
--- NOTE | ~2024-09-17 | MR_ITS ---
MRI of the thoracic spine Clinical History: Fracture Technique: Axial T2-weighted and gradient images, and sagittal T1-weighted, T2-weighted, and STIR gerry ges were acquired. Findings: There is kyphosis of the thoracic spine without distinct fracture or subluxation. No suspic ious bone marrow signal identified. There is somewhat heterogeneous marrow signal overall. No significant disc bulge or herniation identified in the thoracic spine. There is multilevel moderat e degenerative disc narrowing, especially the mid thoracic spine. Neural foramina appear relatively w ell preserved throughout the thoracic spine. No abnormal signal seen in the spinal cord. Paravertebral soft tissues are unremarkable. Impression: Kyphosis without fracture or subluxation. Multilevel moderate degenerative disc narrowing in the mid thoracic spine. Reviewed, dictated and finalized at location . Impression: Kyphosis without fracture or subluxation. Multilevel moderate degenerative disc narrowing in the mid thoracic spine.
--- OUTSIDE RECORDS SUMMARY | 2024-09-17 09:14 | XMS_ITS | Clinical Summary ---
Author Organization [facility] Pato Whiteside Address [address] [place] [address] Care Team Providers Care Prehemmer Name Role Phone Provider, Abstract Primary Care [...] 11:00 AM CDT Height 167.6 cm (5' 6) 09/19/2020 11:00 AM CDT Body Mass Index 29.88 09/19/2020 11:00 AM CDT Plan of Treatment Health Maintenance Due Date Last Done Comments DTAP/TDAP/TD VACCINES (1 - Tdap) 1982 HPV/Cotest (21-29) 1984 CERVICAL CANCER SCREENING 1993 HPV/Cotest (30-65) 1993 PAP SMEAR 1993 BREAST CANCER SCREENING 2003 COLORECTAL SCREENING 2008 Colorectal Cancer Screening 2008 FIT-DNA Q 3 years 2008 FIT/FOBT Q 1 year 2008 Flex Sig/CT Colonography Q 5 years 2008 ZOSTER VACCINE (1 of 2) 2013 RSV VACCINE (60+ or ) (1 - Risk 60-74 years 1-dose series) 2023 INFLUENZA VACCINE (#1) 2023 Insurance MEDICAID Care Teams Prehemmer Relationship Specialty Start Date End Date Provider, Abstract NO ADDRESS ON FILE PCP - General 09/19/20
--- OUTSIDE RECORDS SUMMARY | 2024-09-17 09:14 | XMS_ITS | Clinical Summary ---
Author Organization [facility] Address [address], [facility] [address] [place] [address] Phone Care Team Providers Care Soil Specialist Name Role Phone Sherif Shine MD Primary Care Provider [phone] Allergies No known active allergies Medications latanoprost [...] Comments Blood Pressure 110/60 05/24/2018 1:00 PM DOUBLE CORNER CUTTER Pulse 54 05/24/2018 1:00 PM DOUBLE CORNER CUTTER Temperature 36.5 C (97.7 F) 05/24/2018 1:00 PM DOUBLE CORNER CUTTER Respiratory Rate 16 05/24/2018 1:00 PM DOUBLE CORNER CUTTER Oxygen Saturation 92% 05/24/2018 1:00 PM DOUBLE CORNER CUTTER Inhaled Oxygen Concentration - - Weight 81.6 kg (180 lb) 05/18/2018 11:00 AM DOUBLE CORNER CUTTER Height 167.6 cm (5' 6) 05/24/2018 9:00 AM DOUBLE CORNER CUTTER Body Mass Index 29.05 05/18/2018 11:00 AM DOUBLE CORNER CUTTER Plan of Treatment Health Maintenance Due Date [...] this topic Medical Devices Implanted Type Area Typing Checker Device Identifier Shelf Expiration Date Model / Serial / Lot Mesh Srg Ventralight St Sepra Echo Ps 6in Mfl Ltwt Abs Loprfl Strl Seprafilm Polyp Hydrogel [place] - [id number] Implanted:Qty: 1 on 10/26/2017 by Khari Vazquez MD at [facility] IMPLANT N/A: Abdomen [employer] 05/24/2019 [id number] / [id number] / [id number] Patch Srg Mfl Self Expand Strap Pocket Ventralex Sepra Sorbaflex Polyp Eptfe Med [place] 2.5in Strl - [id number] Implanted:Qty: 1 on 05/24/2018 by Khari Vazquez MD at [facility] IMPLANT N/A: Abdomen [employer] 06/24/2019 [id number] / [id number] / [id number] Procedures Procedure Name Priority Date/Time Associated Diagnosis Comments COLONOSCOPY Routine 11/23/2013 from Last 3 Months or Most Recently Relevant to Health Maintenance Results * COLONOSCOPY (11/23/2013) Glen Cheung MD PROCEDURE/MINOR SURGICAL ORDERAB LES Final Result from Last 3 Months or Most Recently Relevant to Health Maintenance Insurance [facility]ID [facility] Care Teams Soil Specialist Relationship Specialty Start Date End Date Sherif Shine MD [address] [phone] PCP - General Pediatrics 10/01/17
== END 2024-09-17 09:11 | disposition home or self-care (01) ==
LOC: CHSIMG 09:12
PROVIDERS: PCP Family Medicine; Visit Provider Family Medicine
DX: S22.079D Unspecified fracture of T9-T10 vertebra, subsequent encounter for fracture with routine healing (principal); M40.204 Unspecified kyphosis, thoracic region
CPT/HCPCS: 72146

== ENCOUNTER 2024-12-02 14:16 | Outpatient (CLI) | payer OTHER, SELFPAY ==
--- OUTSIDE RECORDS SUMMARY | 2024-12-02 14:20 | XMS_ITS | Clinical Summary ---
Author Organization [facility] Pato Rainbenigno Address [address] [place] [address] Care Team Providers Care Retort Load Expediter Name Role Phone Provider, Abstract Primary Care [...] years 1-dose series) 2023 INFLUENZA VACCINE (#1) 2024 Insurance MEDICAID Care Teams Retort Load Expediter Relationship Specialty Start Date End Date Provider, Abstract NO ADDRESS ON FILE PCP - General 09/19/20
--- OUTSIDE RECORDS SUMMARY | 2024-12-02 14:20 | XMS_ITS | Clinical Summary ---
Author Organization [facility] Address [facility] [place] [address] Care Team Providers Care Grade Recorder Name Role Phone Unavailable Primary Care Provider [...] Screening with HPV 1993 Mammogram Screening 2003 Pneumococcal Vaccine: 50+ Ye ars (1 of 1 - PCV) 2013 Zoster Vaccines (1 of 2) 2013 COVID-19 Vaccine (2023-2 5 season) 2023 RSV Immunization or 60+ Years (1 - 1-dose 75+ series) 2038 Meningococcal B Vaccine Aged Out No l onger eligible based on patient's age to complete this topic Meningococcal Vaccine Aged Out No akilah mike eligible based on patient's age to complete this topic RSV Immunizations Under 20 Months Aged Out No longer eligible based on patient's age to complete this topic
--- OUTSIDE RECORDS SUMMARY | 2024-12-02 14:20 | XMS_ITS | Encounter Summary ---
Author Organization [facility] Address [address] [place] [address] Care Team Providers Care Technical Project Coordinator Name Role Phone Unavailable Primary Care Provider Unavailabl e Encounter Details Date Type Department Care Team (Late st Contact Info) Description 10/02/2018 Abstract SFL CONVERSION [address] [place] [address] , Generic Conversion, Social History Tobacco Use [...]
--- OUTSIDE RECORDS SUMMARY | 2024-12-02 14:20 | XMS_ITS | Clinical Summary ---
Author Organization [facility] Address [address], [facility] [address] [place] [address] Phone Care Team Providers Care Veterinary Medicine Teacher Name Role Phone Sherif Shine MD Primary [...] Comments Blood Pressure 110/60 05/24/2018 1:00 PM ELASTIC TAPE INSERTER Pulse 54 05/24/2018 1:00 PM ELASTIC TAPE INSERTER Temperature 36.5 C (97.7 F) 05/24/2018 1:00 PM ELASTIC TAPE INSERTER Respiratory Rate 16 05/24/2018 1:00 PM ELASTIC TAPE INSERTER Oxygen Saturation 92% 05/24/2018 1:00 PM ELASTIC TAPE INSERTER Inhaled Oxygen Concentration - - Weight 81.6 kg (180 lb) 05/18/2018 11:00 AM ELASTIC TAPE INSERTER Height 167.6 cm (5' 6) 05/24/2018 9:00 AM ELASTIC TAPE INSERTER Body Mass Index 29.05 05/18/2018 11:00 AM ELASTIC TAPE INSERTER Plan of Treatment Health Maintenance Due Date Last Done Comments Hepatitis C Virus (HCV) Screening 1963 TdaP Immunization 1963 Pap Smear 1984 Cervical Cancer Screening (CCS) 1993 HPV/Cotest 1993 Cologuard 2008 Immunochemical Fecal Occult Blood 2008 Zoster Immunization (1 of 2) 2013 Pneumococcal Immunization (5 0+ years) (2 of 2 - PCV) 01/25/2015 01/25/2014 Respiratory Syncytial Virus (RSV) Immunization (Adult) (1 - Risk 60-74 years 1-dose series) 2023 Colonoscopy 11/24/2023 11/23/2013 Colorectal Cancer Screening 11/24/2023 SARS-COV-2 Immunization ( season) 2023 04/18/2021, 10/17/2020, 09/26/2020 Influenza Immunization (#1) 2024 01/25/2014 Pneumococcal Immunization Combined Discontinued 01/25/2014 Hepatitis B Immunization Aged Out No longer eligible based on patient's age to complete this topic Human Papillomavirus (HPV) Immunization Aged Out No longer eligible based on patient's age to complete this topic Meningococcal Immunization (ACWY) Aged Out No longer eligible based on patient's age to complete this topic Rotavirus Immunization Aged Out No lo nger eligible based on patient's age to complete this topic Medical Devices Implanted Type Area Volunteer Assistant Device Identifier Shelf Expiration Date Model / Serial / Lot Mesh Srg Ventralight St Sepra Echo Ps 6in Mfl Ltwt Abs Loprfl Strl Seprafilm Polyp Hydrogel [place] - [id number] Implanted:Qty: 1 on 10/26/2017 by [facility] IMPLANT N/A: Abdomen [employer] 05/24/2019 [id number] / [id number] / [id number] Patch Srg Mfl Self Expand Strap Pocket Ventralex Sepra Sorbaflex Polyp Eptfe Med [place] 2.5in Strl - [id number] Implanted:Qty: 1 on 05/24/2018 by [facility] IMPLANT N/A: Abdomen [employer] 06/24/2019 [id number] / [id number] / [id number] Procedures Procedure Name Priority Date/Time Associated Diagnosis Comments COLONOSCOPY Routine 11/23/2013 from Last 3 Months or Most Recently Relevant to Health Maintenance Results * COLONOSCOPY (11/23/2013) Glen Cheung MD PROCEDURE/MINOR SURGICAL ORDERAB LES Final Result from Last 3 Months or Most Recently Relevant to Health Maintenance Insurance MEDICAID [facility] [facility] Care Teams Veterinary Medicine Teacher Relationship Specialty Start Date End Date Sherif Shine MD [address] [phone] PCP - General Pediatrics 10/01/17
[2024-12-02 14:46] LABS: Hematocrit 45.6 % (35.0-49.0); Hemoglobin 14.5 g/dL (12.0-15.0); Immature Granulocyte Percent A 0.4 % (0.0-0.0); Lymphocytes Absolute Auto 3.09 K/mm3 (1.10-4.50); Mean Corpuscular HGB Conc 31.8 g/dL (32-36); Mean Corpuscular Hemoglobin 31.7 pg (27.0-31.0); Mean Corpuscular Volume 99.8 fL (78.0-102.0); Nucleated Red Blood Cells Absolute Auto 0.00 K/mm3 (0.00-0.00); Nucleated Red Blood Cells Perc 0.0 % (0-0.0); Platelet Count Result 241 K/mm3 (150-420); Red Blood Count 4.57 M/mm3 (4.20-5.40); White Blood Count 9.7 K/mm3 (4.8-10.8)
[2024-12-02 15:12] LABS: Add Urine Microscopic? NO; Alanine Aminotransferase 11 U/L (6-35); Albumin Level 4.1 g/dL (3.5-5.1); Alkaline Phosphatase 72 U/L (38-126); Amylase 80 U/L (30-110); Anion Gap 6 mmol/L (4-12); Appearance Urine Clear (Clear); Aspartate Amino Transferase 18 U/L (14-36); Bilirubin,Total 0.7 mg/dL (0.2-1.3); Blood Urea Nitrogen 12 mg/dL (7-17); Calcium 9.9 mg/dL (8.4-10.2); Carbon Dioxide 30 mmol/L (22-30); Chloride 102 mmol/L (98-107); Estimated Glomerular Filt Rate 58; Glucose 99 mg/dL (65-110); Glucose Urine UA Negative (Negative); Leukocyte Esterase Ur Negative (Negative); Lipase 51 U/L (23-300); Nitrate Urine Negative (Negative); Osmolality Calculated 285 mOsm/kg (285-295); Potassium 3.7 mmol/L (3.4-5.0); Sodium 138 mmol/L (137-145); Specific Grav Ur 1.020 (1.010-1.020); Total Protein 6.3 g/dL (6.3-8.2)
[2024-12-02 15:43] LABS: Thyroid Stimulating Hormone 2.460 uIU/mL (0.465-4.680)
== END 2024-12-02 14:17 | disposition home or self-care (01) ==
LOC: CHSLAB 14:18
PROVIDERS: PCP Family Medicine; Visit Provider Family Medicine
DX: I10 Essential (primary) hypertension (principal); R10.9 Unspecified abdominal pain
CPT/HCPCS: 36415; 80053; 81003; 82150; 83690; 84443; 85025

== ENCOUNTER 2024-12-07 12:25 | Outpatient (CLI) | payer OTHER, SELFPAY ==
--- NOTE | ~2024-12-07 | XR_ITS ---
XR chest 2V 12/07/2024 12:49 Indication: Abdominal pain Procedure: 2 view chest Comparison: No prior studies for comparison. Findings: Heart size normal. No focal air space disease, pulmonary edema, pleural effusion or suspect ed pneumothorax. Accentuated thoracic kyphosis. Impression: 1: No acute cardiopulmonary disease. Reviewed, dictated and finalized at location A. Impression: 1: No acute cardiopulmonary disease.
--- NOTE | ~2024-12-07 | XR_ITS ---
Exam: X-ray abdomen 3 views HISTORY: Abdominal pain. COPD. Comparisons: None available. TECHNIQUE: 3 images of the abdomen were obtained. FINDINGS: Clips project over the right abdomen. Lung bases are clear. Moderate amount of air and stool in nondi lated large bowel. There are a few less than 1 cm calcifications in the pelvis may represent phleboli ths, however, however a distal ureteral stone or bladder stone impossible. Small amount of air in non dilated small bowel. There are a few nonspecific air-fluid levels in the right abdomen. IMPRESSION: 1. Nonspecific abdomen with a moderate amount of stool. If symptoms persist or worsen, consider a CT of the abdomen and pelvis for further assessment. Reviewed, dictated and finalized at location A.
--- OUTSIDE RECORDS SUMMARY | 2024-12-07 12:29 | XMS_ITS | Clinical Summary ---
Author Organization [facility] Address [facility] [place] [address] Care Team Providers Care Slot Operations Director Name Role Phone Unavailable Primary Care Provider [...]
--- OUTSIDE RECORDS SUMMARY | 2024-12-07 12:29 | XMS_ITS | Clinical Summary ---
Author Organization [facility] Address [address], [facility] [address] [place] [address] Phone Care Team Providers Care Field Hockey Coach Name Role Phone Sherif Shine MD Primary [...] Comments Blood Pressure 110/60 05/24/2018 1:00 PM ONCOLOGY REP SPECIALIST Pulse 54 05/24/2018 1:00 PM ONCOLOGY REP SPECIALIST Temperature 36.5 C (97.7 F) 05/24/2018 1:00 PM ONCOLOGY REP SPECIALIST Respiratory Rate 16 05/24/2018 1:00 PM ONCOLOGY REP SPECIALIST Oxygen Saturation 92% 05/24/2018 1:00 PM ONCOLOGY REP SPECIALIST Inhaled Oxygen Concentration - - Weight 81.6 kg (180 lb) 05/18/2018 11:00 AM ONCOLOGY REP SPECIALIST Height 167.6 cm (5' 6) 05/24/2018 9:00 AM ONCOLOGY REP SPECIALIST Body Mass Index 29.05 05/18/2018 11:00 AM ONCOLOGY REP SPECIALIST Plan of Treatment Health Maintenance Due Date [...] this topic Medical Devices Implanted Type Area Choke Reamer Device Identifier Shelf Expiration Date Model / Serial / Lot Mesh Srg Ventralight St Sepra Echo Ps 6in Mfl Ltwt Abs Loprfl Strl Seprafilm Polyp Hydrogel [place] - [id number] Implanted:Qty: 1 on 10/26/2017 by [facility]ari [facility] MD at [facility] IMPLANT N/A: Abdomen [employer] 05/24/2019 [id number] / [id number] / [id number] Patch Srg Mfl Self Expand Strap Pocket Ventralex Sepra Sorbaflex Polyp Eptfe Med [place] 2.5in Strl - [id number] Implanted:Qty: 1 on 05/24/2018 by [facility] MD at [facility] IMPLANT N/A: Abdomen [employer] 06/24/2019 [id number] / [id number] / [id number] Procedures Procedure Name Priority Date/Time Associated Diagnosis Comments COLONOSCOPY Routine 11/23/2013 from Last 3 Months or Most Recently Relevant to Health Maintenance Results * COLONOSCOPY (11/23/2013) Glen Cheung MD PROCEDURE/MINOR SURGICAL ORDERAB LES Final Result from Last 3 Months or Most Recently Relevant to Health Maintenance Insurance MEDICAID [facility] Care Teams Field Hockey Coach Relationship Specialty Start Date End Date Sherif Shine MD [address] [phone] PCP - General Pediatrics 10/01/17
--- OUTSIDE RECORDS SUMMARY | 2024-12-07 12:29 | XMS_ITS | Encounter Summary ---
Author Organization [facility] Address [address] [place] [address] Care Team Providers Care Facility Maintenance Technician Name Role Phone Unavailable Primary Care Provider Unavailabl e Encounter Details Date Type Department Care Team (Late st Contact Info) Description 10/02/2018 Abstract SFL CONVERSION [address] [place] [address] , Generic Conversion, Social History Tobacco Use [...]
--- OUTSIDE RECORDS SUMMARY | 2024-12-07 12:29 | XMS_ITS | Clinical Summary ---
Author Organization [facility] Pato Rainbenigno Address [address] [place] [address] Care Team Providers Care Pony Cylinder Press Operator Name Role Phone Provider, Abstract Primary Care [...] VACCINE (#1) 2024 Insurance MEDICAID Care Teams Pony Cylinder Press Operator Relationship Specialty Start Date End Date Provider, Abstract NO ADDRESS ON FILE PCP - General 09/19/20
== END 2024-12-07 12:26 | disposition home or self-care (01) ==
PROVIDERS: PCP Family Medicine; Visit Provider Family Medicine
DX: J44.9 Chronic obstructive pulmonary disease, unspecified (principal); R10.0 Acute abdomen
CPT/HCPCS: 71046; 74021

== ENCOUNTER 2025-01-04 10:58 | Outpatient (CLI) | payer OTHER, SELFPAY ==
--- OUTSIDE RECORDS SUMMARY | 2025-01-04 11:56 | XMS_ITS | Clinical Summary ---
Author Organization [facility] Address [facility] [place] [address] Care Team Providers Care Mold Cleaning And Storage Supervisor Name Role Phone Unavailable Primary Care [...] Vaccines (1 of 2) 2013 COVID-19 Vaccine ( - 2023-2 5 season) 2024 RSV Immunization or 60+ Years (1 [...]
--- OUTSIDE RECORDS SUMMARY | 2025-01-04 11:56 | XMS_ITS | Clinical Summary ---
Author Organization [facility] Address [address], [facility] [address] [place] [address] Phone Care Team Providers Care Lab Scientist Name Role Phone Sherif Shine MD Primary [...] Comments Blood Pressure 110/60 05/24/2018 1:00 PM SUPPLIER QUALITY MANAGER Pulse 54 05/24/2018 1:00 PM SUPPLIER QUALITY MANAGER Temperature 36.5 C (97.7 F) 05/24/2018 1:00 PM SUPPLIER QUALITY MANAGER Respiratory Rate 16 05/24/2018 1:00 PM SUPPLIER QUALITY MANAGER Oxygen Saturation 92% 05/24/2018 1:00 PM SUPPLIER QUALITY MANAGER Inhaled Oxygen Concentration - - Weight 81.6 kg (180 lb) 05/18/2018 11:00 AM SUPPLIER QUALITY MANAGER Height 167.6 cm (5' 6) 05/24/2018 9:00 AM SUPPLIER QUALITY MANAGER Body Mass Index 29.05 05/18/2018 11:00 AM SUPPLIER QUALITY MANAGER Plan of Treatment Health Maintenance Due Date [...] Colorectal Cancer Screening 11/24/2023 Influenza Immunization (#1) 2024 01/25/2014 SARS-COV-2 Immunization ( season) 2024 04/18/2021, 10/17/2020, 09/26/2020 Pneumococcal Immunization Combined Discontinued 01/25/2014 Hepatitis B [...] this topic Medical Devices Implanted Type Area Spooler Operator Device Identifier Shelf Expiration Date Model / Serial / Lot Mesh Srg Ventralight St Sepra Echo Ps 6in Mfl Ltwt Abs Loprfl Strl Seprafilm Polyp Hydrogel [place] - [id number] Implanted:Qty: 1 on 10/26/2017 by Khari Vazquez MD at [facility] IMPLANT N/A: Abdomen [employer] 05/24/2019 [id number] / [id number] / [id number] Patch Srg Mfl Self Expand Strap Pocket Ventralex Sepra Sorbaflex Polyp Eptfe Med [place] 2.5in Strl - [id number] Implanted:Qty: 1 on 05/24/2018 by Khari Vazquez MD at [facility] IMPLANT N/A: Abdomen [employer] 06/24/2019 [id number] / [id number] / [id number] Procedures Procedure Name Priority Date/Time Associated Diagnosis Comments COLONOSCOPY Routine 11/23/2013 from Last 3 Months or Most Recently Relevant to Health Maintenance Results * COLONOSCOPY (11/23/2013) Glen Cheung MD PROCEDURE/MINOR SURGICAL ORDERAB LES Final Result from Last 3 Months or Most Recently Relevant to Health Maintenance Insurance MEDICAID AETNA [facility] Care Teams Lab Scientist Relationship Specialty Start Date End Date Sherif Shine MD [address] [phone] PCP - General Pediatrics 10/01/17
--- OUTSIDE RECORDS SUMMARY | 2025-01-04 11:56 | XMS_ITS | Encounter Summary ---
Author Organization [facility] Address [address] [place] [address] Care Team Providers Care Producer Assistant Name Role Phone Unavailable Primary Care Provider Unavailabl e Encounter Details Date Type Department Care Team (Late st Contact Info) Description 10/02/2018 Abstract SFL CONVERSION [address] [place] [address] , Generic Conversion, Social History Tobacco Use [...]
== END 2025-01-04 10:59 | disposition home or self-care (01) ==
PROVIDERS: PCP Family Medicine; Visit Provider Family Medicine
DX: J44.9 Chronic obstructive pulmonary disease, unspecified (principal); R10.9 Unspecified abdominal pain; R94.2 Abnormal results of pulmonary function studies
CPT/HCPCS: 94060; 94726; 94729

== ENCOUNTER 2025-01-28 06:59 | Outpatient (CLI) | payer OTHER, SELFPAY ==
--- NOTE | ~2025-01-28 | MR_ITS ---
EXAMINATION: MR lumbar spine wo con DATE: 01/28/2025 07:29 INDICATION: Numbness in the legs. TECHNIQUE: Magnetic resonance imaging (MRI) of the lumbar spine was performed without intravenous contrast. Sequences included sagittal T2-weighted FSE, sagittal T2-weighted FS FSE, sagittal T1-weighted FSE, and axial T2-weighted FSE. COMPARISON: Lumbar spine MRI 04/23/2021 FINDINGS: There is 5 degrees dextrocurvature of lumbar spine. There is a chronic burst fracture of L1 with 2/5 loss of height and retropulsion of bone 3 mm into central spinal canal. There is mild chronic anterior wedging of T12 vertebral body. There is mildly decreased disc height at L3-L4 and L4-L5. The distal spinal cord signal intensity is normal. The conus medullaris is at L1. The following disc levels are specifically discussed: L1-L2: The disc does not extend beyond the endplate margin. There is mild right facet joint osteoarthritis. There is no neural foraminal stenosis. There is no central canal stenosis. L2-L3: The disc is bulging. There is mild bilateral facet joint osteoarthritis. There is mild bilateral neural foraminal stenosis. There is mild central canal stenosis. L3-L4: The disc is bulging. There is moderate bilateral facet joint osteoarthritis. There is mild bilateral neural foraminal stenosis. There is mild central canal stenosis. L4-L5: The disc is bulging and has an annular fissure. There is moderate bilateral facet joint osteoarthritis. There is mild bilateral neural foraminal stenosis. There is mild central canal stenosis. L5-S1: There is a central protrusion. There is severe right and mild left facet joint osteoarthritis. There is no neural foraminal stenosis. There is mild central canal stenosis. IMPRESSION: 1. Mild lumbar spondylosis, stable from 04/23/2021. Reviewed, dictated and finalized at location E.
== END 2025-01-28 07:00 | disposition home or self-care (01) ==
LOC: CHSIMG 07:00
PROVIDERS: PCP Family Medicine; Visit Provider Family Medicine
DX: S32.010G Wedge compression fracture of first lumbar vertebra, subsequent encounter for fracture with delayed healing (principal); M43.06 Spondylolysis, lumbar region
CPT/HCPCS: 72148

== ENCOUNTER 2025-01-30 13:28 | Outpatient (CLI) | payer OTHER, SELFPAY ==
[2025-01-30 14:05] LABS: Strep Group A RT-PCR NOT DETECTED (Negative)
[2025-01-30 14:16] LABS: Influenza A QL RT-PCR Negative (Negative); Influenza B QL RT-PCR Negative (Negative); SARS-CoV-2 RNA PCR Negative (Negative)
--- OUTSIDE RECORDS SUMMARY | 2025-01-30 14:28 | XMS_ITS | Clinical Summary ---
Author Organization [facility] Address Pending sale to [facility] [place] [address] Care Team Providers Care Oyster Preparer Name Role Phone Unavailable Primary Care Provider [...]
--- OUTSIDE RECORDS SUMMARY | 2025-01-30 14:28 | XMS_ITS | Encounter Summary ---
Author Organization [facility] Address [address] [place] [address] Care Team Providers Care Quality Process Engineer Name Role Phone Unavailable Primary Care Provider Unavailabl e Encounter Details Date Type Department Care Team (Late st Contact Info) Description 10/02/2018 Abstract SFL CONVERSION [address] [place] [address] , Generic Conversion, Social History Tobacco Use [...]
--- OUTSIDE RECORDS SUMMARY | 2025-01-30 14:28 | XMS_ITS | Clinical Summary ---
Author Organization [facility] Pato Rainbenigno Address [address] [place] [address] Care Team Providers Care Flour Broker Name Role Phone Provider, Abstract Primary Care [...] VACCINE (#1) 2024 Insurance MEDICAID Care Teams Flour Broker Relationship Specialty Start Date End Date Provider, Abstract NO ADDRESS ON FILE PCP - General 09/19/20
--- OUTSIDE RECORDS SUMMARY | 2025-01-30 14:28 | XMS_ITS | Clinical Summary ---
Author Organization [facility] Address [address], [facility] [address] [place] [address] Phone Care Team Providers Care Forging Engineer Name Role Phone Sherif Shine MD Primary [...] Comments Blood Pressure 110/60 05/24/2018 1:00 PM OUTSIDE MACHINIST Pulse 54 05/24/2018 1:00 PM OUTSIDE MACHINIST Temperature 36.5 C (97.7 F) 05/24/2018 1:00 PM OUTSIDE MACHINIST Respiratory Rate 16 05/24/2018 1:00 PM OUTSIDE MACHINIST Oxygen Saturation 92% 05/24/2018 1:00 PM OUTSIDE MACHINIST Inhaled Oxygen Concentration - - Weight 81.6 kg (180 lb) 05/18/2018 11:00 AM OUTSIDE MACHINIST Height 167.6 cm (5' 6) 05/24/2018 9:00 AM OUTSIDE MACHINIST Body Mass Index 29.05 05/18/2018 11:00 AM OUTSIDE MACHINIST Plan of Treatment Health Maintenance Due Date [...] this topic Medical Devices Implanted Type Area Photogrammetric Stereo Compiler Device Identifier Shelf Expiration Date Model / Serial / Lot Mesh Srg Ventralight St Sepra Echo Ps 6in Mfl Ltwt Abs Loprfl Strl Seprafilm Polyp Hydrogel [place] - [id number] Implanted:Qty: 1 on 10/26/2017 by Khari Vazquez MD at [facility] IMPLANT N/A: Abdomen [employer] 05/24/2019 [id number] / [id number] / [id number] Patch Srg Mfl Self Expand Strap Pocket Ventralex Sepra Sorbaflex Polyp Eptfe Med [place] 2.5in Strl - [id number] Implanted:Qty: 1 on 05/24/2018 by Khari Vazquez MD at [facility] IMPLANT N/A: Abdomen [employer] 06/24/2019 [id number] / [id number] / [id number] Procedures Procedure Name Priority Date/Time Associated Diagnosis Comments COLONOSCOPY Routine 11/23/2013 from Last 3 Months or Most Recently Relevant to Health Maintenance Results * COLONOSCOPY (11/23/2013) Glen Cheung MD PROCEDURE/MINOR SURGICAL ORDERAB LES Final Result from Last 3 Months or Most Recently Relevant to Health Maintenance Insurance MEDICAID AETNA [facility] Care Teams Forging Engineer Relationship Specialty Start Date End Date Sherif Shine MD [address] [phone] PCP - General Pediatrics 10/01/17
== END 2025-01-30 13:29 | disposition home or self-care (01) ==
LOC: CHSLAB 13:30
PROVIDERS: PCP Family Medicine; Visit Provider Nurse Practitioner Family
DX: R05.9 Cough, unspecified (principal); R19.7 Diarrhea, unspecified
CPT/HCPCS: 87636; 87651